=== PATIENT | male | born 1970 | race Caucasian/White ===

== ENCOUNTER 2020-11-19 21:53 | Observation (INO) | payer BC, SELFPAY ==
--- NOTE | ~2020-11-19 | XR_ITS ---
EXAMINATION: XR chest 2V 11/19/2020 22:48 INDICATION: Cough, nausea and headache PROCEDURE: 2 view chest COMPARISON: No prior studies for comparison. FINDINGS: The lungs are clear. The cardiomediastinal silhouette is within normal limits. There are no pleural effusions. There is no pneumothorax suspected. IMPRESSION: 1: NO ACUTE CARDIOPULMONARY DISEASE. Reviewed, dictated and finalized at location A. SEALING MACHINE OPERATOR
[2020-11-19 21:55] VITALS: BP 201/115; PULSE 92; RESP 17; O2SAT 98
--- NOTE | 2020-11-19 22:40 | ECG_ITS ---
Measurements Intervals [place] Rate: 87 P: 10 SD: 157 QRS: 16 QRSD: 87 T: -1 QT: 366 QTc: 442 Interpretive Statements SINUS RHYTHM BORDERLINE ST-T WAVE ABNORMALITY- INFERIOR LEADS BASELINE ARTIFACT- I, III, AVR, AVL, AVF BORDERLINE ECG Electronically Signed On 11-20-2020 7:13:31 BLUEPRINT CLERK by Everett Alvarenga D.O.
--- NOTE | 2020-11-19 22:42 | ED.CHESTPAIN ---
HPI - Chest Pain General Chief Complaint: Recheck/Abnormal Lab/Rx Stated Complaint: High BP, headache Time Seen by Provider: 11/19/20 22:07 Source: patient Mode of arrival: ambulatory Limitations: no limitations History of Present Illness HPI narrative: Patient is a 50-year-old male complaining of chest pain, midsternal, pressure, 6 out of 10, nonradiating accompanied by nausea and elevated blood pressure started today. Patient also noticed flushing of his face along with the elevated blood pressure. Patient denies any history of hypertension. Patient denies any shortness of breath, abdominal pain, vomiting, diaphoresis, fever or chills. Related Data Home Medications Medication Instructions Recorded Confirmed No Home Medications 11/19/20 11/19/20 Allergies Allergy/AdvReac Type Severity Reaction Status Date / Time No Known Allergies Allergy Verified 11/19/20 21:55 Review of Systems Review of Systems: All systems reviewed & are unremarkable except as noted in HPI and below Constitutional: Constitutional: Denies body ache(s), Denies chills, Denies excessive sweating, Denies fatigue, Denies fever(s), Denies headache(s), Denies lethargy, Denies malaise, Denies weakness and Denies weight loss Eyes: Eyes: Denies blurry vision, Denies change in vision and Denies loss of vision ENT: Denies dizziness, Denies ear discharge, Denies headache(s), Denies lip swelling, Denies epistaxis, Denies nasal congestion, Denies neck pain, Denies throat swelling and Denies tongue swelling Cardiovascular: Cardiovascular: Denies diaphoresis, Denies rapid heart rate, Denies edema, Denies irregular heart rhythm, Denies lightheadedness, Denies palpitations, Denies dyspnea and Denies dyspnea on exertion Respiratory: Respiratory: Denies chest congestion, Denies cough, Denies hemoptysis, Denies dyspnea and Denies dyspnea on exertion Gastrointestinal: Gastrointestinal: Denies abdominal pain, Denies melena, Denies hematochezia, Denies diarrhea, Denies nausea, Denies vomiting and Denies hematemesis Musculoskeletal: Musculoskeletal: Denies abnormal gait, Denies deformity, Denies joint swelling, Denies limited range of motion, Denies neck pain and Denies numbness Neurologic: Denies Abnormal speech present, Denies abnormal gait, Denies confusion, Denies dizziness, Denies headache(s), Denies focal weakness, Denies loss of vision, Denies numbness, Denies Other visual disturbances, Denies Sensory deficit (Neuro) and Denies weakness Psychiatric: Psychiatric: Denies confusion, Denies depression, Denies auditory hallucinations, Denies homicidal ideation and Denies suicidal ideation Endocrine: Endocrine: Denies cold intolerance, Denies excessive sweating, Denies fatigue, Denies heat intolerance and Denies palpitations Hematologic/Lymphatic: Hematologic/Lymphatic: Denies easy bleeding and Denies easy bruising Allergic/Immunologic: Allergic/Immunologic: Denies lip swelling, Denies throat swelling and Denies tongue swelling PMFSH Social History Social History Gender identity (if verbalized by the patient): Male Exam Const: General: cooperative, healthy appearing, comfortable, no acute distress, well developed, alert and awake; No confusion Orientation/consciousness: oriented to person, oriented to place, oriented to time, patient oriented x3 and No confusion Limitations: no limitations HENMT: Head: normal to inspection, normocephalic and atraumatic Ears: hearing grossly normal bilaterally, TM normal on the right and TM normal on the left General nose exam: Normal external nose present, Normal nares present and No nasal discharge present Face and sinus: normal facial exam Mouth: Yes Normal oral and palatal mucosa present, Yes lip normal, Yes tongue normal and Yes oropharynx normal Throat: posterior oropharynx normal, tonsils normal and uvula midline Eyes: General: appearance normal, both eyes and all relate
--- NOTE | 2020-11-19 22:44 | PC.NURSE ---
Pt. to XR
[2020-11-19 23:03] VITALS: BP 152/107; PULSE 87; RESP 22; O2SAT 96
[2020-11-19] MEDS: ASPIRIN 81 MG CHEWABLE TABLET 324 MG PO (23:04)
[2020-11-19] MEDS: NITROGLYCERIN SL 0.4 MG TABLET SUBLINGUAL (23:05)
--- NOTE | 2020-11-19 23:08 | PC.NURSE ---
2305 Pt. CP 4/10 Administered 1 Nitro SL 0.4 MG bp 152/107 2310 Pt. chest pain 2/10 BP 129/87 Administered 1 nitro SL 0.4 mg 2315 Pt. CP 0/10 BP 72/50
[2020-11-19] MEDS: SODIUM CHLORIDE 0.9% IV 1,000 ML 999 ML (23:17)
--- NOTE | 2020-11-19 23:19 | PC.NURSE ---
ERP notified of Pt. BP drop 1L NS administered IVP at 999ml/hr
[2020-11-19 23:28] LABS: Basophils Absolute Auto 0.1 K/mm3 (0.0-0.1); Basophils Percent Auto 0.5 % (0.2-1.2); Eosinophils Absolute Auto 0.2 K/mm3 (0-0.3); Eosinophils Percent Auto 1.3 % (0-4.4); Hematocrit 44.1 % (42.0-52.0); Immature Granulocyte Absolute 0.04 K/mm3 (0.00-0.031); Immature Granulocyte Percent A 0.3 % (0-0.5); Lymphocytes Absolute Auto 2.25 K/mm3 (0.9-3.2); Lymphocytes Percent Auto 18.7 % (18.3-44.2); Mean Corpuscular Hemoglobin 29.1 pg (26-34); Mean Corpuscular Volume 85.6 fl (80-100); Mean Platelet Volume 10.2 fl (7.4-10.4); Monocytes Absolute Auto 0.8 K/mm3 (0.1-0.6); Monocytes Percent Auto 6.9 % (2.6-8.5); Neutrophils Absolute Auto 8.7 K/mm3 (1.3-6.7); Neutrophils Percent Auto 72.3 % (45.5-73.1); Platelet Count Result 268 k/mm3 (150-375); Red Blood Count 5.15 M/mm3 (4.6-6.20); Red Cell Distribution Width 13.4 % (11.5-14.5); White Blood Count 12.1 K/mm3 (4.5-10.0)
[2020-11-19 23:35] LABS: Alanine Aminotransferase 51 U/L (4-50); Albumin Level 4.5 g/dL (3.5-5.1); Alkaline Phosphatase 45 U/L (38-126); Anion Gap 7 mmol/L (8-16); Aspartate Amino Transferase 50 U/L (17-59); Bilirubin,Total 0.5 mg/dL (0.2-1.3); Blood Urea Nitrogen 16 mg/dL (9-20); Calcium 9.3 mg/dL (8.4-10.2); Carbon Dioxide 26 mmol/L (22-30); Chloride 107 mmol/L (98-107); Estimated CRCL calculation 98 ml/min; Estimated Glomerular Filt Rate > 60; Glucose 107 mg/dL (75-110); Potassium 3.7 mmol/L (3.4-5.0); Sodium 140 mmol/L (137-145)
[2020-11-19 23:42] LABS: INR 0.9; Prothrombin Time 12.9 Seconds (11.1-14.7)
[2020-11-19 23:44] LABS: Partial Thromboplastin Time 28.7 SECONDS (22.3-36.8)
[2020-11-20] VITALS (30 sets, daily range): BP systolic 121–182; BP diastolic 78–116; PULSE 74–98; RESP 12–29; TEMP 36–36.4; O2SAT 95–100; BMI 33.7
--- NOTE | 2020-11-20 | EST_ITS ---
Patient Info Name: Red Sullivan Age: 50 years : 1970 Gender: Male Ht: 67 in Wt: 210 lbs BSA: 2.16 m2 Exam Date: 11/20/2020 1:27 PM Exam Location: [facility] Pul[facility] Patient Status: Inpatient Admit Date: 11/20/2020 Staff Ordering Physician: Trevor Torres MD Drug Regulatory Affairs Specialist: Vernell Hauser RDCS Attending Provider: Vivi Crocker DO Exercise Technologist: Vee Dumont RDCS Exercise Physician: Everett Alvarenga DO Exam Type: CA stress echo Study Info Indications R07.9 - Chest pain, unspecified Treadmill exercise stress echocardiogram is performed. Summary 1. 1. Negative Jair exercise stress test for ischemic ST changes by ECG criteria. 2. 2. Good functional capacity, achieving 12 METs of workload. 3. 3. Baseline hypertension with hypertensive response to exercise. 4. 4. Appropriate HR response to exercise. 5. 5. Appropriate HR recovery at 1 minute post exercise. 6. 6. Negative stress echocardiogram for ischemia by wall motion analysis. 7. 7. Patient informed of the above results. Stress Echo Findings Left Ventricle Appropriate increase in LV endocardial thickening with systole. Appropriate augmentation of contractility with systole. No wall motion abnormality. Left Ventricle Normal LV systolic function, no wall motion abnormality. Protocol: Jair Stress ECG Details Stage: REST Duration (min): 13 min : 31 sec Speed (mph): 0.0 Grade (%): 0 HR (bpm): 82 SBP (mmHg): 157 DBP (mmHg): 102 METS: --- Stage: REST Duration (min): 25 min : 23 sec Speed (mph): 0.0 Grade (%): 0 HR (bpm): 89 SBP (mmHg): 157 DBP (mmHg): 102 METS: --- Stage: STAGE 1 Duration (min): 1 min : 0 sec Speed (mph): 1.7 Grade (%): 10 HR (bpm): 111 SBP (mmHg): 157 DBP (mmHg): 102 METS: --- Stage: STAGE 1 Duration (min): 2 min : 0 sec Speed (mph): 1.7 Grade (%): 10 HR (bpm): 118 SBP (mmHg): 157 DBP (mmHg): 102 METS: --- Stage: STAGE 1 Duration (min): 3 min : 0 sec Speed (mph): 1.7 Grade (%): 10 HR (bpm): 119 SBP (mmHg): 170 DBP (mmHg): 100 METS: --- Stage: STAGE 2 Duration (min): 1 min : 0 sec Speed (mph): 2.5 Grade (%): 12 HR (bpm): 124 SBP (mmHg): 170 DBP (mmHg): 100 METS: --- Stage: STAGE 2 Duration (min): 2 min : 0 sec Speed (mph): 2.5 Grade (%): 12 HR (bpm): 131 SBP (mmHg): 181 DBP (mmHg): 101 METS: --- Stage: STAGE 2 Duration (min): 3 min : 0 sec Speed (mph): 2.5 Grade (%): 12 HR (bpm): 135 SBP (mmHg): 181 DBP (mmHg): 101 METS: --- Stage: STAGE 3 Duration (min): 1 min : 0 sec Speed (mph): 3.4 Grade (%): 14 HR (bpm): 144 SBP (mmHg): 196 DBP (mmHg): 106 METS: --- Stage: STAGE 3 Duration (min): 2 min : 0 sec Speed (mph): 3.4 Grade (%): 14 HR (bpm): 152 SBP (mmHg): 196 DBP (mmHg): 106 METS: --- Stage: STAGE 3 Duration (min): 3 min : 0 sec S
[2020-11-20 00:02] LABS: Troponin I < 0.012 ng/mL (0.000-0.034)
[2020-11-20] MEDS: diphenhydrAMINE HCl CAP 25 MG CAPSULE 50 MG PO (02:24)
[2020-11-20 02:53] LABS: Troponin I < 0.012 ng/mL (0.000-0.034)
--- NOTE | 2020-11-20 03:24 | ADMGEN ---
This patient, Red Sullivan, was admitted to IMU Room 232-01. Patient/family oriented to hospital policies and general routines including ID bracelet, bed and alarms, visiting hours, pain management, procedures, bathroom and other care routines, personal items, smoking policy, room service/diet, and visiting hours. Information on how to activate the Rapid Response Team has been discussed. Patient/Family are encouraged to report perceived risks to care and to ask questions if they do not understand what they are told or what they should do.
[2020-11-20 05:58] LABS: Troponin I < 0.012 ng/mL (0.000-0.034)
--- NOTE | 2020-11-20 10:53 | PM.IMHP ---
H&P: HPI History of Present Illness Date/Time: 11/20/20 10:53 Chief Complaint: Chest pain, elevated BP Narrative: Red Sullivan is a 50 year old male with Crohn's disease here for chest pain and elevated blood pressure. About 1 year ago patient noted some facial redness. This has been associated acne. He also has been having right periorbital headaches. He does provide history that he had a head injury but 25 years ago after a boxing bout and was hospitalized for a week at that time with a brain bleed. The headache and facial redness has increased over the past month. He does not drink alcohol, smoke tobacco or illicit drug use. Nothing seems to make the symptoms worse. He has been taking ?a lot of Tylenol recently. He states his 15-year-old daughter has moved in with a boyfriend and he is having a lot of stress due to this. He has been taking excessive amounts of [id number] sleep aids for his insomnia as well. Patient did have COVID 4 weeks ago but was tested negative for COVID about 10 days ago. Because of the facial redness, the patient had a friend check his blood pressure and it was 200/100. Short time later was 140/100. He had a headache at the time. He has been having some facial pressure when he bends over at work. He works as a mudder putting up drywall. No chest pain with work. His work environment is very [place]. Three nights ago, patient developed chest pain that he describes as ?tightness? and ?someone sitting on my chest?. This occurred in the overnight hours. He was up and down all night. He does not believe the chest pain ever resolved that night but resolved by the morning (lasting about 4-5 hrs). There is no nausea, vomiting, diaphoresis for shortness of breath. He rated the pain 6 to 7/10 at that time. Pain resolved by the morning and he was able to work that day without difficulty. Patient was noted to be flushed in the face yesterday afternoon. A friend insisted he come to the emergency room which he did so. He was short of breath walking into the facility here. He had some nausea and headache. No diaphoresis. He developed chest tightness a describes 4/10 but no radiation while here in the ED. He did have ?spots? in his vision but that has resolved. Blood pressure on presentation was 201/115. EKG showed borderline ST T wave changes in the inferior lead. Initial Troponin was negative. Labs [place] [id number]. Chest x-ray was clear. ALT elevated 51 but no risk factors for hepatitis C. He also states he was been tested for hepatitis C in the past that has been negative. He was treated with nitroglycerin and aspirin. Repeat blood pressure improved. Patient also received 3 doses of Benadryl as well. Patient was admitted for further care. No further chest pain since admission. Troponins were negative x3. Other pertinent information includes the fact the patient was seen 3 years ago for palpitations at [place] [facility]. He had chest pain at that time as well. He was discharged from [place] [facility] and had a follow-up outpatient treadmill stress test that was negative. He has blurry vision but thinks he has were glasses. No vision loss or diplopia. No odynophagia or dysphagia. No hearing loss or tinnitus. He has a chronic cough associated with acid reflux. No urinary symptoms. No diabetes or thyroid disease. He does have increased anxiety over the past year related to his daughter. No suicidal or homicidal ideation. No neurologic symptoms. He has gained about 40-50 lb with a past 3-4 years. He does have chronic diarrhea from his Crohn's but no melena or hematochezia. He has 2-3 bowel movements per day. He is not on any treatments for his Crohn's. He a was on prednisone in the past about 6-7 years ago. His last flare was 1-2 years ago. Review of Systems Review of Systems: All systems reviewed & are unremarkable except as noted in HPI and below PMFSH Past Medical Histor
[2020-11-20] MEDS: amLODIPine BESYLATE 5 MG TABLET PO (12:51)
[2020-11-20] MEDS: ACETAMINOPHEN 325 MG TABLET 650 MG PO ×2 (12:51→22:59)
[2020-11-20] MEDS: ASPIRIN 81 MG CHEWABLE TABLET PO (12:51)
[2020-11-20 13:25] LABS: Acetaminophen < 10 ug/mL (10-30)
[2020-11-20] MEDS: LORazepam (*CRX) 0.5 MG TABLET PO (18:20)
[2020-11-20] MEDS: lisinopriL 10 MG TABLET PO (18:20)
[2020-11-20] MEDS: MELATONIN 3 MG TABLET PO (23:00)
[2020-11-21] VITALS (8 sets, daily range): BP systolic 121–142; BP diastolic 61–88; PULSE 66–100; RESP 16–18; TEMP 36.1–36.5; O2SAT 95–98
[2020-11-21] MEDS: ACETAMINOPHEN 325 MG TABLET 650 MG PO ×2 (05:19→15:43)
[2020-11-21] MEDS: LORazepam (*CRX) 0.5 MG TABLET PO ×2 (05:19→15:43)
[2020-11-21 05:46] LABS: Basophils Percent Auto 0.4 % (0.2-1.2); Eosinophils Absolute Auto 0.3 K/mm3 (0-0.3); Eosinophils Percent Auto 3.5 % (0-4.4); Hemoglobin 14.5 g/dL (14.0-18.0); Immature Granulocyte Absolute 0.03 K/mm3 (0.00-0.031); Immature Granulocyte Percent A 0.3 % (0-0.5); Lymphocytes Absolute Auto 2.15 K/mm3 (0.9-3.2); Lymphocytes Percent Auto 24.1 % (18.3-44.2); Mean Corpuscular HGB Conc 33.7 g/dl (32-36); Mean Corpuscular Hemoglobin 28.5 pg (26-34); Mean Corpuscular Volume 84.5 fl (80-100); Mean Platelet Volume 10.3 fl (7.4-10.4); Monocytes Absolute Auto 0.7 K/mm3 (0.1-0.6); Monocytes Percent Auto 8.2 % (2.6-8.5); Neutrophils Absolute Auto 5.7 K/mm3 (1.3-6.7); Neutrophils Percent Auto 63.5 % (45.5-73.1); Platelet Count Result 257 k/mm3 (150-375); Red Blood Count 5.09 M/mm3 (4.6-6.20); Red Cell Distribution Width 13.4 % (11.5-14.5); White Blood Count 8.9 K/mm3 (4.5-10.0)
[2020-11-21 06:00] LABS: Alanine Aminotransferase 45 U/L (4-50); Albumin Level 3.9 g/dL (3.5-5.1); Alkaline Phosphatase 35 U/L (38-126); Anion Gap 7 mmol/L (8-16); Aspartate Amino Transferase 44 U/L (17-59); Bilirubin,Total 0.5 mg/dL (0.2-1.3); Blood Urea Nitrogen 17 mg/dL (9-20); Calcium 8.9 mg/dL (8.4-10.2); Carbon Dioxide 26 mmol/L (22-30); Chloride 107 mmol/L (98-107); Cholesterol 199 mg/dL (0-200); Estimated CRCL calculation 97 ml/min; Estimated Glomerular Filt Rate > 60; Glucose 112 mg/dL (75-110); HDL Direct 36 mg/dL; Potassium 3.9 mmol/L (3.4-5.0); Sodium 140 mmol/L (137-145); Triglycerides 313 mg/dL (<150)
[2020-11-21 06:11] LABS: LDL Cholesterol Direct 110 mg/dL
[2020-11-21] MEDS: ASPIRIN 81 MG CHEWABLE TABLET PO (08:58)
[2020-11-21] MEDS: amLODIPine BESYLATE 5 MG TABLET PO (08:58)
[2020-11-21] MEDS: lisinopriL 10 MG TABLET PO (09:36)
--- NOTE | 2020-11-21 15:02 | PM.DS ---
DS: Admitting Diagnosis Admitting Diagnosis Admitting Diagnosis: Chest pain DS: Discharge Diagnosis Discharge Diagnosis (1) Chest pain in adult: Code(s): R07.9 - Chest pain, unspecified Status: Acute Assessment and Plan: Patient with atypical chest pain that occurs at rest. Probably the chest pain is related to his paroxysmal hypertension. Troponins are negative x3. EKG showing only minor abnormalities. Chest x-ray is clear. He does have family history. Minimal other risk factors otherwise. We proceeded with a stress echo that was normal. Lipid panel showing TG 313, TC 199, LDL 110 and HDL 36. (2) Hypertensive urgency: Code(s): I16.0 - Hypertensive urgency Status: Acute Assessment and Plan: Patient with paroxysmal hypertension. He only received dose of sublingual nitroglycerin and blood pressure became well controlled. His elevated blood pressure may be related to his the [id number] medications he is taking. He has been educated about stopping all of these medications from now on. Continue to use melatonin for insomnia. Given his anxiety, headache, flushing and paroxysmal hypertension, I am concerned about pheochromocytoma. We did check urine and plasma metanephrines and catecholamines. TSH level normal. Blood pressure did become elevated again during hospital course and he was started on oral antihypertensive medications. Blood pressure has become better controlled. (3) Rosacea: Code(s): L71.9 - Rosacea, unspecified Status: Acute Assessment and Plan: Patient has been having facial flushing over the past year but worse over the past month. He does not drink alcohol. This could be related to rosacea and clinically that appears to be the case. This may be made worse by the intermittent and severe high blood pressure. We started metronidazole cream. (4) Crohn's disease: Code(s): K50.90 - Crohn's disease, unspecified, without complications Status: Acute Assessment and Plan: Patient has a history of Crohn's disease. Not currently on treatment. He has been having diarrhea but I believe carcinoid is a low likelihood to explain his flushing. Follow up for a GI evaluation as an outpatient. (5) Apnea: Code(s): R06.81 - Apnea, not elsewhere classified Status: Acute Assessment and Plan: Apnea link was abnormal with AHI of 41 and RI of 45. Test was performed on room air with duration of over 6-1/2 hours. Patient will need sleep study as an outpatient. DS: Summary Hospital Course Reason for hospitalization: 50yo male with Crohn's disease here for chest pain. Please see H&P for details. Hospital Course: Please see above for details of hospital course. Status at Discharge Cognitive/behavioral status at discharge: Stable for discharge Time Spent with Patient Time attestation: Total time spent providing and/or coordinating discharge services: 40 minutes Time spent: Greater than 30 minutes Specific discharge activities: Patient Education Exam Narrative: Exam Narrative: AF 97.0 142/82 91 16 98% ra Gen - NARD HEENT - mild facial erythema consistent with roscea, right TM was retracted but left clear. Chest - lungs are clear to auscultation bilaterally. No wheezes or crackles. CV - heart was regular rate and rhythm. S1-S2. Tele showing no significnat dyrhythmias Abd - soft. NT/ND, +BS Ext - no pedal edema. 2+ DP pulses bilaterally. Psych - normal mood and affect. Patient is pleasant and cooperative. Skin - warm and dry. DS: Data Data Completed and Pending Labs on day of discharge: Labs from last 24 hours 11/21/20 11/21/20 11/21/20 05:09 05:09 05:09 WBC 8.9 RBC 5.09 Hgb 14.5 Hct 43.0 MCV 84.5 MCH 28.5 MCHC 33.7 RDW 13.4 Plt Count 257 MPV 10.3 Immature Gran % (Auto) 0.3 Neut % (Auto) 63.5 Lymph % (Auto) 24.1 [place] % (Auto) 8.2 Eos % (Auto
[2020-11-21 15:21] LABS: Cortisol Random 3.24 ug/dL
[2020-11-24 14:01] LABS: Metanephrine, Free <25 pg/mL (<=57); Normetanephrine, Free 52 pg/mL (<=148); Total, Free (MN + NMN) 52 pg/mL (<=205)
[2020-11-26 18:55] LABS: Creatinine, Random Urine 131 mg/dL (20-320); Metanephrine, Total Urine 366 mcg/g cr (155-608); Metanephrine, Urine 50 mcg/g cr (33-192); Normetanephrine, Urine 316 mcg/g cr (85-514)
--- NOTE | 2020-12-03 09:23 | PC.NURSE ---
Cortisol, urine meta, plasma meta, normet and total free faxed to [facility].
== END 2020-11-21 16:22 | disposition home or self-care (01) ==
LOC: ANHED 11-20 00:57 → ANHIMU 11-20 12:52
PROVIDERS: Admitting Provider Internal Medicine; Emergency Provider Emergency Medicine; PCP Nurse Practitioner Adult Health; Visit Provider Internal Medicine
DX: R07.89 Other chest pain (principal); I16.0 Hypertensive urgency; K50.90 Crohn's disease, unspecified, without complications; L71.9 Rosacea, unspecified; R06.81 Apnea, not elsewhere classified
CPT/HCPCS: 36415; 71046; 80053; 80061; 80307; 82533; 82570; 83835; 84443; 84484; 85025; 85610; 85730; 93005; 93351; 94762; 96360; 99285; A9270; G0378; G0379; J7030

== ENCOUNTER 2025-05-12 14:32 | Emergency (ER) | payer SELFPAY ==
--- NOTE | ~2025-05-12 | CT_ITS ---
CLINICAL INDICATION: Right flank pain COMPARISON: None. TECHNIQUE: Multiple contiguous axial images of the abdomen and pelvis were performed without the admi nistration of intravenous contrast The dose-length product (DLP) was 428.11 mGy-cm. Automated exposure control and iterative reconstruction technique were employed. FINDINGS/OBSERVATIONS: Visualized lower thorax: Right basilar atelectasis. The remainder of the bilateral lung billings are clear. The heart is of normal size, without pericardial effusion. Small hiatal hernia is present. Liver: The liver demonstrates homogeneous attenuation and is not enlarged. Gallbladder and biliary system: The gallbladder is only minimally distended, and otherwise unremarkable. Pancreas: Limited evaluation of the pancreas secondary to the lack of intravenous contrast. Spleen: The spleen demonstrates homogeneous attenuation and is not enlarged. Kidneys: Right sided hydroureteronephrosis extending to the right ureterovesicular junction where a 4 mm calculus is identified. The left kidney is unremarkable. Adrenal glands: Unremarkable. Gastrointestinal tract: Colonic diverticulosis without surrounding inflammatory change. Mural thickening within the distal small bowel. Appendix: The air-filled appendix is of normal caliber (axial series, images 127 through 141). Vasculature: Unremarkable. Lymph nodes: Limited evaluation without intravenous contrast. Pelvic structures: The bladder is only minimally distended, and contains a stone at the ureterovesicular junction. The prostate gland is not enlarged. Body wall and musculoskeletal: Small fat-containing umbilical hernia. No significant degenerative disease within the lower thoracic or lumbosacral spine. IMPRESSION: Right-sided hydroureteronephrosis secondary to a 4 mm calculus within the right ureterovesicular junc tion Reviewed, dictated and finalized at location A. IMPRESSION: Right-sided hydroureteronephrosis secondary to a 4 mm calculus within the right ureterovesicular junction
--- OUTSIDE RECORDS SUMMARY | 2025-05-12 14:35 | XMS_ITS | Data Portability ---
Author Organization [facility] Address [address] [place] [address] Assessment Encounter Date Assessment Date Assessment LastModified by Organization Details LastModified Time 10/26/2023 10/26/2023 phq9 -- 9 - no SI [email or web address] Not available 10/26/2023 16:52:04 06/04/2024 06/04/2024 Pt is stable. He is on no medications. [email or web address] Not available 06/10/2024 10:38:18 10/03/2024 10/03/2024 BP is elevated because he had just drunk an energy drink. Not available 10/08/2024 07:25:02 Plan of Treatment Reminders Order Date Submit Date Provider Last Modified By Organization Details Last Modified Time Details Appointments None record ed. Lab PSA, total, serum or plasma 2023 024 [facility], [address] [facility], [facility], [place], [address], 4 06:18:56 HbA1c (hemog lobin A1c), blood 2023 024 [facility], [address] [facility], [address], [place], [address], 4 06:18:55 CMP, serum or plasma 2023 024 [facility], [address], [place], [address], 4 06:18:54 lipid panel, serum 2023 024 [facility], [address], [facility], [place], [address], 4 06:18:52 CMP, serum or plasma 2023 024 [email or web address] [facility], [address] [facility], [facility], [place], [address], 4 15:24:31 lipid panel, serum 2023 024 [email or web address] [facility], [address] [facility], [facility], [place], [address], 4 15:24:31 HbA1c (hemog lobin A1c), blood 2023 024 [email or web address] [facility], [address] [facility], [facility], [place], [address], 4 15:24:31 PSA, total, serum or plasma 2023 024 [facility], [address] [facility], [facility], [place], [address], 4 15:24:31 lipid panel, serum 2023 024 [facility], [address] [facility], [facility], [place], [address], 4 06:18:19 CMP, serum or plasma 2023 024 [facility], [address] [facility], [facility], [place], [address], 4 06:18:20 TSH, ultra- sensit hadley, serum 2023 024 [facility], [address] [facility], [facility], [place], [address], 4 09:17:42 HbA1c (hemog lobin A1c), blood 2023 024 [facility], [address] [facility], [address], [place], [address], 4 09:17:44 vitami n B12 + folate , serum or blood 2023 024 [facility], [address] [facility], [address], [place], [address], 4 09:17:43 iron + total iron-b inding capaci ty (TIBC) , serum 2023 024 [facility], [address] [facility], [address], [place], [address], 4 09:17:43 ferrit in, serum or plasma 2023 024 [facility], [address] [facility], [facility], [place], [address], 4 09:17:45 vitami n D, 25-hyd oralia, total, serum 2023 024 [facility], [address] [facility], [facility], [place], [address], 4 09:17:46 Hepati tis C IgG Ab, qual, serum 2023 024 [facility], [address] [facility], [facility], [place], [address], 4 09:17:41 HIV 1 + 2, meanin gful use set 2023 024 [facility], [address] [facility], [facility], [place], [address], 4 09:17:47 Referral neurol ogist referr al 2023 024 [email or web address] [facility], [address] [place] [address] [address], [place], [address], 4 11:33:55 gastro entero logist referr al 2023 024 thomas Ashton MD, [address] [facility] [address], [place], [address], 4 17:04:49 sleep medici ne referr al - previo usly on CPAP has not used in years - has been diagno sed in other state 2023 024 [place] Haley Rajput, [address] [facility], [address], [place], [address], 4 11:46:32 Procedures None record ed. Surgeries None record ed. Imaging None record ed. Medication Orders rosuva statin 10 mg tablet 2023 [facility][id number], [address], [place], [place], [id number], 4 16:40:14 triamc inolon e aceton herson 0.1 % topica l cream 2023 024 [facility] #[id number], [address] , [place], [place], [id number], 4 16:33:30 atorva statin 40 mg tablet 2023 024 [facility] #[id number], [address], [place], [place], [id number], 4 16:09:54 Patient TargetsNo targets recorded. Patient Instructions Encounter Date Encounter Id Patient Instructions Last Modified By Organization Details Last Modified Time 10/26/2023 [id number] A healthy lifestyle: care instructions [email or web address] Not available 10/26/2023 16:52:10 Attending Physician Attestation I personally saw and examined the patient with the resident. I have reviewed the documentation and agree with the history, physical findings, work-up, and medical decision making as recorded. Tegan Davidson MD [email or web address] Not available 10/26/2023 16:50:01 11/20/2023 [id number] A healthy lifestyle: care instructions [email or web address] Not available 11/20/2023 09:37:05 On the date of this encounter, I was immediately available to assist the resident/fellow in the care of the patient, and have reviewed and agree with the resident s findings and plan of care. ~MD West [email or web address] Not available 11/20/2023 09:42:24 01/03/2024 [id number] A healthy lifestyle: care instructions [email or web address] Not available 01/03/2024 10:55:25 I was present in the office and available during the visit. I discussed the patient s presentation, findings, assessment and plan with the resident during or immediately after the time of service. I agree with the resident s findings, assessment, and plan as documented in the note above. Molly Figueroa MD. [facility] [email or web address] Not available 01/03/2024 10:54:47 06/04/2024 [id number] When You Want to Lose Weight: Care Instructions Not available 06/04/2024 17:08:36 10/03/2024 [id number] crohn's disease: care instructions [email or web address] Not available 10/03/2024 16:35:01 drug allergy: ca re instructions [email or web address] Not available 10/03/2024 16:33:20 Reason for Referral Sleep Medicine Referral for Obstructive sleep apnea syndrome previously on CPAP has not used in years - has been diagnosed in other state Referring Physician: Cherry Valverde, Deep Submergence Vehicle Operator, Encounter Date: 10/26/2023 Motion Picture Photographer Referral for Screening for malignant neoplasm of colon Referring Physician: Cherry Valverde Deep Submergence Vehicle Operator, Encounter Date: 11/20/2023 Neurologist Referral for Fam jess history of dementia Referring Physician: Dennis Morris, Family Medicine, Encounter Date: 06/04/2024 Results Created Date Observation Date Name Description Value Unit Range Abnormal Flag Note LastModifiedBy Organization Detail LastModifiedTime 10/26/19 24 10/26/2023 LIPID PANEL cholesterol, total 229 mg/dL 100-19 9 above high normal Not Available [facility] [address] [place], [address], 10/27/2023 06:18:19 10/26/19 24 10/26/2023 LIPID PANEL triglyceride s 551 mg/dL 0-149 above high normal Not Available [facility] [address] [place] [address], [address], 10/27/2023 06:18:19 10/26/19 24 10/26/2023 LIPID PANEL HDL cholesterol 36 mg/dL 40-999 below low normal Not Available [facility] [address] [place], [address], 10/27/2023 06:18:19 10/26/19 24 10/26/2023 LIPID PANEL VLDL cholesterol ramiro 110 mg/dL 5-40 above high normal Not Available [facility] [address] [place] [address], [address], 10/27/2023 06:18:19 10/26/19 24 10/26/2023 LIPID PANEL LDL chol calc (nih) 164 mg/dL 0-99 above high normal Not Available [facility] [address] [place] [address], [address], 10/27/2023 06:18:19 10/26/19 24 10/26/2023 COMP. METAB OLIC PANEL (14) glucose 96 mg/dL 70-99 Not Available [facility] [address] [place], [address], 10/27/2023 06:18:20 10/26/19 24 10/26/2023 COMP. METAB OLIC PANEL (14) BUN 16 mg/dL 6-24 Not Available [facility] [address] [place] [address], [address], 10/27/2023 06:18:20 10/26/19 24 10/26/2023 COMP. METAB OLIC PANEL (14) creatinine 0.85 mg/dL 0.76-1 .27 Not Available [facility] [address] [place] [address], [address], 10/27/2023 06:18:20 10/26/19 24 10/26/2023 COMP. METAB OLIC PANEL (14) eGFR 105 >=60 Units for eGFR value s are mL/mi n/1.7 3 The eGFR Calcu latio n has not been valid ated for patie nts under the age of 18. If test resul ts are displ ayed for a patie nt under the age of 18, disre mary jane that value . Not Available [facility] [address] [place] [address], [address], 10/27/2023 06:18:20 10/26/19 24 10/26/2023 COMP. METAB OLIC PANEL (14) BUN/creatini ne ratio 19 9-20 Not Available [facility] [address] [place] [address], [address], 10/27/2023 06:18:20 10/26/19 24 10/26/2023 COMP. METAB OLIC PANEL (14) sodium 142 mmol/ L 134-14 4 Not Available [facility] [address] [place] [address], [address], 10/27/2023 06:18:20 10/26/19 24 10/26/2023 COMP. METAB OLIC PANEL (14) potassium 3.9 mmol/ L 3.5-5. 2 Not Available [facility] [address] [place] [address], [address], 10/27/2023 06:18:20 10/26/19 24 10/26/2023 COMP. METAB OLIC PANEL (14) chloride 105 mmol/ L 96-106 Not Available [facility] [address] [place] [address], [address], 10/27/2023 06:18:20 10/26/19 24 10/26/2023 COMP. METAB OLIC PANEL (14) carbon dioxide, total 22 mmol/ L 20-29 Not Available [facility] [address] [place], [address], 10/27/2023 06:18:20 10/26/19 24 10/26/2023 COMP. METAB OLIC PANEL (14) calcium 10.1 mg/dL 8.7-10 .2 Not Available [facility] [address] [place], [address], 10/27/2023 06:18:20 10/26/19 24 10/26/2023 COMP. METAB OLIC PANEL (14) protein, total 7.5 g/dL 6.0-8. 5 Not Available [facility] [address] [place], [address], 10/27/2023 06:18:20 10/26/19 24 10/26/2023 COMP. METAB OLIC PANEL (14) albumin 4.6 g/dL 3.8-4. 9 Not Available [facility] [address] [place], [address], 10/27/2023 06:18:20 10/26/19 24 10/26/2023 COMP. METAB OLIC PANEL (14) globulin, total 2.9 g/dL 1.5-4. 5 Not Available [facility] [address] [place], [address], 10/27/2023 06:18:20 10/26/19 24 10/26/2023 COMP. METAB OLIC PANEL (14) A/G ratio 1.6 1.2-2. 2 Not Available [facility] [address] [place], [address], 10/27/2023 06:18:20 10/26/19 24 10/26/2023 COMP. METAB OLIC PANEL (14) bilirubin, total 0.3 mg/dL 0.0-1. 2 Not Available [facility] [address] [place], [address], 10/27/2023 06:18:20 10/26/19 24 10/26/2023 COMP. METAB OLIC PANEL (14) alkaline phosphatase 39 IU/L 44-121 below low normal Not Available [facility] [address] [place] [address], [address], 10/27/2023 06:18:20 10/26/19 24 10/26/2023 COMP. METAB OLIC PANEL (14) AST (SGOT) 26 IU/L 0-40 Not Available [facility] [address] [place], [address], 10/27/2023 06:18:20 10/26/19 24 10/26/2023 COMP. METAB OLIC PANEL (14) ALT (SGPT) 34 IU/L 0-44 Not Available [facility] [address] [place] [address], [address], 10/27/2023 06:18:20 10/26/19 24 10/27/2023 HCV ANTIB SUKHDEV RFX TO QUANT PCR HCV Ab Non Reacti ve nonrea ctive Not Available [facility] ([facility]) [address] [place], [address], 10/27/2023 09:17:40 10/26/19 24 10/27/2023 TSH RFX ON ABNOR MAL TO FREE T4 TSH 1.840 uIU/m L 0.450- 4.500 Not Available [facility] ([facility]) [address] [facility], [place], [address], 10/27/2023 09:17:42 10/26/19 24 10/27/2023 VITAM IN B12 AND FOLAT E vitamin B12 318 pg/mL 232-12 45 Not Available [facility] ([facility]) [address] [facility], [place], [address], 10/27/2023 09:17:42 10/26/19 24 10/27/2023 VITAM IN B12 AND FOLAT E folate (folic acid), serum 7.3 NG/mL >3.0 A serum folat e vanessa ntrat ion of less than 3.1 ng/mL is consi dered to repre sent clini ramiro defic iency . Not Available [facility] ([facility]) [address] [facility], [place], [address], 10/27/2023 09:17:42 10/26/19 24 10/27/2023 IRON AND TIBC iron bind.cap.(TI BC) 282 ug/dL 250-45 0 Not Available [facility] ([facility]) [address] [facility], [place], [address], 10/27/2023 09:17:43 10/26/1910/27/2023 IRON AND TIBC UIBC 212 ug/dL 111-34 3 Not Available [facility] ([facility]) [address] [place], [address], 10/27/2023 09:17:43 10/26/19 24 10/27/2023 IRON AND TIBC iron 70 ug/dL 38-169 Not Available [facility] ([facility]) [address] [facility], [place], [address], 10/27/2023 09:17:43 10/26/1910/27/2023 IRON AND TIBC iron saturation 25 % 15-55 Not Available [facility] ([facility]) [address] [place], [address], 10/27/2023 09:17:43 10/26/1910/27/2023 HEMOG LOBIN A1C hemoglobin A1C 5.7 % 4.8-5. 6 above high normal Predi abete s: 5.7 - 6.4 Diabe jefry: >6.4 Glyce idalai contr ol for adult s with diabe jefry: <7.0 Not Available [facility] ([facility]) [address] [place], [address], 10/27/2023 09:17:44 10/26/1910/27/2023 CHEKO TIN ferritin 349 NG/mL 30-400 Not Available [facility] ([facility]) [address] [facility], [place], [address], 10/27/2023 09:17:45 10/26/19 24 10/27/2023 VITAM IN D, 25-HY DROXY vitamin D, 25-hydroxy 21.9 NG/mL 30.0-1 00.0 below low normal Vitam in D defic iency has been defin ed by the Insti tute of Medic ine and an Endoc rine Socie ty pract ice guide line as a level of serum 25-OH vitam in D less than 20 ng/mL (1,2) . The Endoc rine Socie ty went on to furth er defin e vitam in D insuf ficie ncy as a level betwe en 21 and 29 ng/mL (2). 1. IOM (Inst itute of Medic ine). 2009. Dietmariano ry refer ence intak es for calci um and D. Cristhian quick [place]: The [facility], [facility]–1983 [facility] Press . 2. Hattie plummer MF, [place], Yaneth off-F errar i HESS, et al. Evalu ation , treat ment, and preve ntion of vitam in D defic iency : an Endoc rine Socie ty clini ramiro pract ice guide line. JCEM. 2010; 96(7) :1911 -30. Not Available [facility] ([facility]) [address] [facility], [place], [address], 10/27/2023 09:17:46 10/26/19 24 10/27/2023 HIV AB/P2 4 AG WITH REFLE X HIV Ab/P24 Ag screen Non Reacti ve nonrea ctive HIV Negat hadley HIV-1 /HIV- 2 antib odies and HIV-1 p24 antig en were NOT detec christy. There is no labor atory evide nce of HIV infec tion. Not Available [facility] ([facility]) [address] [facility], [place], [address], 10/27/2023 09:17:47 10/26/19 24 10/27/2023 INTER PRETA TION: interpretati on: Commen t Not infec christy with HCV unles s early or acute infec tion is suspe cted (whic h may be delay ed in an immun ocomp romis ed indiv idual ), or other evide nce exist s to indic ate HCV infec tion. Not Available [facility] ([facility]) [address] [facility], [place], [address], 10/27/2023 09:17:40 10/03/20 24 10/05/2024 LIPID PANEL cholesterol, total 222 mg/dL 100-19 9 above high normal Not Available [facility] ([facility]) [address] [place], [address], 10/05/2024 06:18:52 10/03/20 24 10/05/2024 LIPID PANEL triglyceride s 311 mg/dL 0-149 above high normal Not Available [facility] ([facility]) [address] [place], [address], 10/05/2024 06:18:52 10/03/20 24 10/05/2024 LIPID PANEL HDL cholesterol 46 mg/dL >39 Not Available [facility]) [address] [place], [address], 10/05/2024 06:18:52 10/03/20 24 10/05/2024 LIPID PANEL VLDL cholesterol ramiro 55 mg/dL 5-40 above high normal Not Available [facility] ([facility]) [address] [facility], [place], [address], 10/05/2024 06:18:52 10/03/20 24 10/05/2024 LIPID PANEL LDL chol calc ([facility]) 121 mg/dL 0-99 above high normal Not Available [facility] ([facility]) [address] [place], [address], 10/05/2024 06:18:52 10/03/20 24 10/05/2024 COMP. METAB OLIC PANEL (14) glucose 96 mg/dL 70-99 Not Available [facility] ([facility]) [address] [place], [address], 10/05/2024 06:18:53 10/03/20 24 10/05/2024 COMP. METAB OLIC PANEL (14) BUN 17 mg/dL 6-24 Not Available [facility] ([facility]) [address] [place], [address], 10/05/2024 06:18:53 10/03/20 24 10/05/2024 COMP. METAB OLIC PANEL (14) creatinine 1.01 mg/dL 0.76-1 .27 Not Available [facility] ([facility]) [address] [place], [address], 10/05/2024 06:18:53 10/03/20 24 10/05/2024 COMP. METAB OLIC PANEL (14) eGFR 89 mL/mi n/1.7 3 >59 Not Available [facility] ([facility]) [address] [place], [address], 10/05/2024 06:18:53 10/03/20 24 10/05/2024 COMP. METAB OLIC PANEL (14) BUN/creatini ne ratio 17 9-20 Not Available [facility] ([facility]) [address] [place], [address], 10/05/2024 06:18:53 10/03/20 24 10/05/2024 COMP. METAB OLIC PANEL (14) sodium 143 mmol/ L 134-14 4 Not Available [facility] ([facility]) [address] [place], [address], 10/05/2024 06:18:53 10/03/20 24 10/05/2024 COMP. METAB OLIC PANEL (14) potassium 3.8 mmol/ L 3.5-5. 2 Not Available [facility] ([facility] [address] [place] [place], [address], 10/05/2024 06:18:53 10/03/20 24 10/05/2024 COMP. METAB OLIC PANEL (14) chloride 103 mmol/ L 96-106 Not Available [facility] ([facility] [address] [facility] [place], [address], 10/05/2024 06:18:53 10/03/20 24 10/05/2024 COMP. METAB OLIC PANEL (14) carbon dioxide, total 21 mmol/ L 20-29 Not Available [facility] ([facility]) [address] [facility] [place], [address], 10/05/2024 06:18:53 10/03/20 24 10/05/2024 COMP. METAB OLIC PANEL (14) calcium 9.9 mg/dL 8.7-10 .2 Not Available [facility] ([facility]) [address] [facility] [place], [address], 10/05/2024 06:18:53 10/03/20 24 10/05/2024 COMP. METAB OLIC PANEL (14) protein, total 6.9 g/dL 6.0-8. 5 Not Available [facility] ([facility]) [address] [facility] [place], [address], 10/05/2024 06:18:53 10/03/20 24 10/05/2024 COMP. METAB OLIC PANEL (14) albumin 4.3 g/dL 3.8-4. 9 Not Available [facility] ([facility]) [address] [facility] [place], [address], 10/05/2024 06:18:53 10/03/20 24 10/05/2024 COMP. METAB OLIC PANEL (14) globulin, total 2.6 g/dL 1.5-4. 5 Not Available [facility] ([facility]) [address] [place], [address], 10/05/2024 06:18:53 10/03/20 24 10/05/2024 COMP. METAB OLIC PANEL (14) bilirubin, total 0.3 mg/dL 0.0-1. 2 Not Available [facility] ([facility]) [address] [place], [address], 10/05/2024 06:18:53 10/03/20 24 10/05/2024 COMP. METAB OLIC PANEL (14) alkaline phosphatase 37 IU/L 44-121 below low normal Not Available [facility] ([facility]) [address] [place], [address], 10/05/2024 06:18:53 10/03/20 24 10/05/2024 COMP. METAB OLIC PANEL (14) AST (SGOT) 28 IU/L 0-40 Not Available [facility] ([facility]) [address] [place], [address], 10/05/2024 06:18:53 10/03/20 24 10/05/2024 COMP. METAB OLIC PANEL (14) ALT (SGPT) 34 IU/L 0-44 Not Available [facility] ([facility]) [address] [place], [address], 10/05/2024 06:18:53 10/03/20 24 10/04/2024 HEMOG LOBIN A1C hemoglobin A1C 5.4 % 4.8-5. 6 Predi abete s: 5.7 - 6.4 Diabe jefry: >6.4 Glyce idalia contr ol for adult s with diabe jefry: <7.0 Not Available [facility] ([facility]) [address] [place], [address], 10/05/2024 06:18:55 10/03/20 24 10/05/2024 PROST ATE-S PECIF IC AG prostate specific Ag 1.5 NG/mL 0.0-4. 0 Moraima ECLIA metho dolog y. Accor ding to the Ameri can Urolo gical Assoc iatio n, Serum PSA shoul d decre ase and remai n at undet ectab le level s after radic al prost atect estrella. The AUA defin es bioch emica l recur rence as an initi al PSA value 0.2 ng/mL or great er follo wed by a subse quent confi rmato ry PSA value 0.2 ng/mL or great er. Value s obtai luís with diffe rent assay metho ds or kits canno t be used inter sanchez eably . Resul ts canno t be inter prete d as absol cantwell evide nce of the prese nce or absen ce of [place]. Not Available [facility] ([facility]) [address] [facility], [place], [address], 10/05/2024 06:18:56 Result Notes None recorded. Problems Name Problem SNOMED Code Status Onset Date Resolution Date Notes Provider Name and Address Organization Details Recorded Time Knee pain Active Dorian Wilson null, [place] - [facility] 6 11:30:36 Liver function tests outside reference range 914686377 Active Flaca Harrsi [place] null, [place] [facility] 6 11:18:39 Eruption 047405336 Active Flaca Harris [place], [place] [facility] 6 11:18:39 Hand pain 59204384 Active Dorian Wilson [place], [place] [facility] 6 11:30:36 Genital warts 743956749 Active Brittany Pizano RN null, [place] [facility] 6 09:23:00 History of supraventr icular tachycardi a 6245493710428 4101 Active 2017 Brittany Pizano RN null, [place] [facility] 8 09:30:42 Crohn's disease 59509857 Active 2023 Cherry Valverde MD Attn: Accounting ,[address] [facility], [place], [address] , [place] - [facility] 4 16:32:22 Mixed anxiety and depressive disorder 003100258 Active 2023 Cherry Valverde MD Attn: Accounting ,[address] [place], [address] , [facility] 4 09:35:46 Prediabete s 254125677 Active 2023 Cherry Valverde MD Attn: Accounting ,[address] [place], [address] , [facility] 4 09:35:46 Mixed hyperlipid emia 181748424 Active 2023 Cherry Valverde MD Attn: Accounting ,[address] [place], [address] , [facility] 4 09:35:48 Obstructiv e sleep apnea syndrome 14228558 Active 2023 Cherry Valverde MD Attn: Accounting ,[address] [place], [address] , [facility] 4 09:35:49 Obesity 742265214 Active 2023 Cherry Valverde MD Attn: Accounting ,[address] [place], [address] , [facility] 4 09:36:33 Essential hypertensi on 79091758 Active 2023 Cherry Valverde MD Attn: Accounting ,[address] [place], [address] , [facility] 4 09:36:35 Screening for malignant neoplasm of colon Active 2023 Cherry Valverde MD Attn: Accounting ,[address] [place], [address] , [facility] 4 09:38:39 Problem Notes None recorded. Procedures Surgical History Date Name Laterality Status Provider Name and Address Organization Details Recorded Time Other completed Flaca Harris [place] - [facility] 11/19/2015 14:10:18 Knee Surgery completed Gia Munoz MA [place] - [facility] 06/10/2022 09:39:44 Imaging Results None recorded. Procedure Notes None recorded. Medical Equipment None Reported. Allergies No known drug allergies Medications Name Sig Start Date Stop Date Status Note LastModified by Organization Details LastModified Time atorvastati n 40 mg tablet TAKE 1 TABLET BY MOUTH EVERY DAY 06/04 completed Not Available Not Available Not Available ibuprofen 800 mg tablet TAKE 1 TABLET BY MOUTH EVERY 8 HOURS NEEDED 05/03 completed Not Available Not Available Not Available lisinopril 20 mg tablet TAKE 1 TABLET BY MOUTH EVERY DAY 10/26 completed Not Available Not Available Not Available prednisone 20 mg tablet TAKE 2 TABLETS BY MOUTH EVERY DAY FOR 3 DAYS 10/26 completed Not Available Not Available Not Available clindamycin HCl 150 mg capsule TAKE ONE CAPSULE BY MOUTH EVERY 6 HOURS FOR SEVEN DAYS 05/03 completed Not Available Not Available Not Available amlodipine 5 mg tablet TAKE 1 TABLET BY MOUTH EVERY DAY 10/26 completed Not Available Not Available Not Available hydrocodone 10 mg-acetamin ophen 325 mg tablet TAKE 1 TABLET BY MOUTH EVERY 6 HOURS NEEDED FOR PAIN 05/03 completed Not Available Not Available Not Available triamcinolo ne acetonide 0.1 % topical cream APPLY A THIN LAYER TO THE AFFECTED AREA(S) BY TOPICAL ROUTE 2 TIMES PER DAY PRN 2023 active Not Available Not Available Not Avai lable meloxicam 7.5 mg tablet Take 1 tablet twice a day by oral route. 11/20 completed Not Available Not Available Not Available Tessalon Perles 100 mg capsule Take 1 capsule 3 times a day by oral route. 06/03 completed Not Available Not Available Not Available amoxicillin 875 mg tablet TAKE 1 TABLET BY MOUTH EVERY 12 HOURS FOR 5 DAYS 05/03 completed Not Available Not Available Not Available diltiazem ER 120 mg capsule,24 hr,extended release take one capsule by mouth daily 12/03 completed Not Available Not Available Not Available erythromyci n 5 mg/gram (0.5 %) eye ointment INSTILL THIN STRIP INTO BOTH LOWER CONJUNCTI VA EVERY 3 TO 4 HOURS FOR 7 DAYS 10/26 completed Not Available Not Available Not Available lisinopril 10 mg tablet TAKE 1 TABLET BY MOUTH DAILY 04/16 completed Not Available Not Available Not Available Aldara 5 % topical cream packet APPLY TO THE AFFECTED AREA(S) BY TOPICAL ROUTE 5 TIMES PER WEEK 11/20 completed Not Available Not Available Not Available polymyxin B sulfate 10,000 unit-trimet hoprim 1 mg/mL eye drops INSTILL 1 DROP IN EACH EYE 3 TO 4 TIMES DAILY FOR 7 DAYS 10/26 completed Not Available Not Available Not Available metronidazo le 0.75 % topical cream APPLY EXTERNALL Y TO THE AFFECTED AREA EVERY 12 HOURS 04/16 completed Not Available Not Available Not Available lisinopril 30 mg tablet Take 1 tablet every day by oral route. 10/26 completed Not Available Not Available Not Available methylpredn isolone 4 mg tablets in a dose pack FOLLOW PACKAGE DIRECTION S 06/04 completed Not Available Not Available Not Available ondansetron 4 mg disintegrat ing tablet DISSOLVE 1 TABLET UNDER THE TONGUE EVERY 8 HOURS NEEDED FORNAUSEA AND VOMITING 10/26 completed Not Available Not Available Not Available amoxicillin 875 mg-potassiu m clavulanate 125 mg tablet TAKE 1 TABLET BY MOUTH TWICE DAILY 06/04 completed Not Available Not Available Not Available azithromyci n 500 mg tablet TAKE 1 TABLET BY MOUTH EVERY DAY FOR 3 DAYS active Not Available Not Available No t Available rosuvastati n 10 mg tablet Take 1 tablet every day by oral route for 90 days. 2023 active Not Available Not Available Not Avai lable emtricitabi ne 200 mg-tenofovi r disoproxil fumarate 300 mg tablet TAKE 1 TABLET BY MOUTH EVERY DAY 10/26 completed Not Available Not Available Not Available Isentress 400 mg tablet TAKE 1 TABLET BY MOUTH TWICE DAILY 10/26 completed Not Available Not Available Not Available Flonase Allergy Relief 50 mcg/actuati on nasal spray,suspe nsion [place] 1 spray every day by intranasa l route. 06/03 completed Not Available Not Available Not Available Vitals Date Recorded Body height Body mass index (BMI) Body weight Respiratory rate Body temperature Oxygen saturation Oxygen saturation in Arterial blood by Pulse oximetry Heart rate Systolic And Diastolic Provider Name and Address Organization Details Last Updated DateTime 4 170.18 cm 33.3 kg/m2 77004.7 3 g 16 /min 98.7 [degF] 95 % 95 % 83 /min 144/100 mm[Hg] Courtney Salmon MA [facility] 4 16:02:50 Date Recorded Body height Body mass index (BMI) Body weight Body temperature Respiratory rate Oxygen saturation Oxygen saturation in Arterial blood by Pulse oximetry Heart rate Systolic And Diastolic Provider Name and Address Organization Details Last Updated DateTime 4 170.18 cm 32.2 kg/m2 36437.1 9 g 96.8 [degF] 16 /min 95 % 95 % 75 /min 130/85 mm[Hg] Jessi Whitfield MA [facility] 4 09:03:49 Date Recorded Body height Body mass index (BMI) Body weight Body temperature Heart rate Respiratory rate Systolic And Diastolic Provider Name and Address Organization Details Last Updated DateTime 4 170.18 cm 31.1 kg/m2 90432.0 4 g 98.3 [degF] 70 /min 18 /min 132/82 mm[Hg] Barbie Roy MA [facility] 4 10:03:30 Date Recorded Body height Body mass index (BMI) Body weight Oxygen saturation Oxygen saturation in Arterial blood by Pulse oximetry Heart rate Respiratory rate Body temperature Systolic And Diastolic Provider Name and Address Organization Details Last Updated DateTime 4 170.18 cm 31.4 kg/m2 78571.2 2 g 96 % 96 % 95 /min 16 /min 97.1 [degF] 134/80 mm[Hg] Gia Munoz MA [facility] 4 16:11:17 Date Recorded Body height Body mass index (BMI) Body weight Oxygen saturation Oxygen saturation in Arterial blood by Pulse oximetry Heart rate Respiratory rate Body temperature Systolic And Diastolic Provider Name and Address Organization Details Last Updated DateTime 4 170.18 cm 31 kg/m2 34716.2 9 g 96 % 96 % 86 /min 16 /min 96.8 [degF] 140/100 mm[Hg] Gia Munoz MA [facility] 4 16:06:08 Social History Question Answer Notes LastModified by Organizat ion Details LastModified Time Tobacco Smoking Status Never Smoker Flacajustine Harris MA [facility], [place] - [place] 11/19/2015 14:10:18 Do You Have An Advance Directive? No Information not available 11/27/2020 Are You Blind Or Do You Have Difficulty Seeing? No Information not available 11/27/2020 What Is Your Level Of Caffeine Consumption? Moderate 2 To 3 Energy Drinks A Week., No Soda 06/04/24 Information not available 06/04/2024 In The 14 Days Before Symptom Onset, Have You Had Close Contact With A Laboratory-confi rmed COVID-19 While That Case Was Ill? No Information not available 11/27/2020 In The 14 Days Before Symptom Onset, Have You Had Close Contact With A Person Who Is Under Investigation For COVID-19 While That Person Was Ill? No Daughter/pt Had In Oct 2020 Information not available 11/27/2020 Have You Been To An Area Known To Be High Risk For COVID-19? No Information not available 11/27/2020 Are You Deaf Or Do You Have Serious Difficulty Hearing? No Information not available 11/27/2020 What Type Of Diet Are You Following? REGULAR Information not available 11/27/2020 Are There Any Guns Present In Your Home? No Information not available 11/27/2020 Marital Status Single [email or web address] Informatio n not available 11/19/2015 What Was The Date Of Your Most Recent Tobacco Screening? 01/03/2024 Information not available 01/03/2024 What Is Your Relationship Status? Single Information not available 11/27/2020 Do You Use Your Seat Belt Or Car Seat Routinely? Yes Information not available 11/27/2020 Are You Sexually Active? Yes Pt. Uses Protection Information not available 06/10/2022 Do You Have Smoke And Carbon Monoxide Detectors In Your Home? Yes Information not available 11/27/2020 Are You Passively Exposed To Smoke? No Information not available 11/27/2020 Do You Use Sunscreen Routinely? No Information not available 11/27/2020 Has Tobacco Cessation Counseling Been Provided? No Information not available 06/10/2022 On What Date Was Tobacco Cessation Counseling Provided? 01/03/2024 Information not available 01/03/2024 Sex: Male Functional Status Question Answer Note LastModified by Organizat ion Details LastModified Time Do you use any illicit or recreational drugs? No Information not available 06/10/2022 Do you or have you ever used any other forms of tobacco or nicotine? No Information not available 06/10/2022 What is your level of alcohol consumption? None alot of energy drinks Information not available 10/26/2023 Are you currently employed? Yes Information not available 10/26/2023 Are you able to care for yourself independently? 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 Occasional Information not available 11/27/2020 Mental Status Question Answer Note LastModified by Organization D etails LastModified Time Do you feel stressed (tense, restless, nervous, or anxious, or unable to sleep at night)? [id number] Information not available 11/27/2020 Family History Relationship Description Onset Age of this Age Resolved Age Notes LastModified by Organization Details LastModified Time Father Heart disease [email or web address] Not available 2015 11:18:39 Father Hypertensive disorder [email or web address] Not available 2015 11:18:39 Mother Dementia [email or web address] Not availab le 06/04/2024 16:08:45 Notes:Updated 06/04/24, 10/03 Medical History Condition Response Coronary Artery Disease N Gout N Other N Thyroid Disease N Atrial Fibrillation N High Blood Pressure N Emphysema N Depression N Congenital Heart Disease N COPD N Blood Clots N Pneumonia N Lung Mass N Sinusitis N Anxiety Disorder N Cystic Fibrosis N Muscle, Joint, or Bone Problems N Obesity N Arthritis N Blood Clot N Acid Reflux (GERD) N Cancer N Stroke N High Cholesterol N Liver Disease N Headaches N Kidney Disease N Allergies/Hayfever Y Thyroid Problems N Kidney or Bladder Problems N NSAID Use N GI Problems N Skin Problems N Anemia N Multiple Sclerosis N Heart Attack (ID) N Mental Illness N Diabetes N Seizures/Epilepsy N Tuberculosis N Diverticulitis N Allergies N Asthma N Hepatitis N Heart Disease N Bronchitis Y Pulmonary Embolism N Hypertension Y Osteoporosis N Heart Failure N Past Encounters Encounter ID Performer Location Encounter Start Date Encounter Closed Date Diagnosis/Indication Diagnosis SNOMED-CT Code Diagnosis ICD10 Code Diagnosis Note [id number] [place] [address] [place] [address] 1 11/19/2015 13:45:31 11/19/2015 15:08:35 Knee pain 70020287 M25.562 Adult heal th examination 314638518 Z00.00 Screening for malignant neoplasm of prostate 172730364 Z12.5 [id number] [place] [address] [place] [address] 1 12/07/2015 11:25:13 12/07/2015 15:38:55 Knee pain 74710263 M25.562 Eruption 112447253 R21 [id number] [place] [address] [place] [address] 1 01/04/2016 10:46:28 01/04/2016 13:36:34 Knee pain 57312440 M25.562 Hand pain 51294153 M79.6 42 [id number] Dorian [place] [address] [place] [address] 1 03/17/2016 11:04:25 03/17/2016 17:00:19 Hand pain 39128935 M79.642 Knee pain 47254807 M25.5 62 Genital warts 375152884 A63.0 [id number] [place] [address] [place] [address] 1 11/20/2017 15:42:03 11/20/2017 17:48:51 Palpitations 35835648 R00.2 Genital warts 802123726 A63.0 Adult heal th examination 894310175 Z00.00 [id number] MD Cornelia Vigil 14 [address] [facility] [place] [address] 12/03/2018 10:59:18 12/04/2018 09:52:27 Upper respiratory infection 88341243 J06.9 Adult heal th examination 217033148 Z00.00 Pain in right knee 51671 14456 59024 M25.561 Pain in left knee 446134 4628 22711 M25.678 [id number] MD Cornelia Vigil 14 IM 4 [facility] [address] [place] [address] 06/03/2019 14:35:44 06/04/2019 10:51:08 Knee pain 75364985 M25.562 left knee Diarrhea 45089936 R19.7 [id number] Dorian Wilson, [facility]- Cornelia 14 IM 4 [facility] [address] Wilson [address] [place], [place] [address], [place] [address] 06/01/2020 08:30:28 06/02/2020 10:04:10 Adult health examination 534563312 Z00.00 [id number] MD Cornelia Vigil 14 IM 4 [facility] [address] Wilson [address] [place], [place] [address], [place] [address] 11/27/2020 13:56:21 11/30/2020 08:58:30 Essential hypertension 41089294 I10 Obesity 307478592 E66.9 Pt is motivated to improve diet and to lose wt.He states that he has gained some 30 pounds over the last several years. Sleep disorder 69509593 G47.9 Raised shantanu orrheic keratosis 1184779214 07450 L82.1 [place] 556826998 R23.2 we will continue to monitor this after he has lost wt and sleep disorder issues have been addressed [id number] Arsalan Benitez MD [facility] (Adult Med) [address] [place] [address] 01/04/2021 15:33:07 01/07/2021 12:15:32 Obstructive sleep apnea syndrome 73153112 G47.33 Will order home sleep study, sleep hygiene discussed Essential hypertension 62584227 I10 Estate Attorney in primary care. Continue to monitor blood pressure. Encourage low salt diet and exercise. Body mass index 30+ - obesity 908159430 Z68.33 [id number] Arsalan Benitez MD [facility] [address] [place] [address] 02/12/2021 10:30:07 02/15/2021 14:40:56 Obstructive sleep apnea syndrome 38151025 G47.33 HSAT 01/26/21: AHi 21.7/hr, lowest 82%. Ordering Apap through [facility]. Encouraged to use cpap every night. Instructed pt to contact DME for any issues with mask fit, comfort, or machine related issue. F/U in 9 weeks to assess compliance and efficacy. sleep hygiene discussed Essential hypertension 06682102 I10 Estate Attorney in primary care. Continue to monitor blood pressure. Encourage low salt diet and exercise. Body mass index 30+ - obesity 555869647 Z68.33 [id number] Arsalan Benitez MD [facility] [address] [place] [address] 04/16/2021 12:14:35 04/27/2021 15:48:41 Obstructive sleep apnea syndrome 18826048 G47.33 HSAT 01/26/21: AHi 21.7/hr, lowest 82%.Cpap compliancy report - days worn/30 days greater than 4 hours, 27%Set pressure of 4-20 cm H2OAHI: 1.0Leak- 95th percentile : 22.5 , Max: 36.7He is benefiting from use, not compliant due to leaving at home when traveling out of town for work. He is motivated to use. Report increased pressure, will adjust and f/u in 1 month. Encouraged to contact office sooner than 1 month if no improvemen t in pressure/s leep after adjustment . Essential hypertension 14628694 I10 Estate Attorney in primary care. Continue to monitor blood pressure. Encourage low salt diet and exercise. Body mass index 30+ - obesity 929251645 Z68.33 [id number] Arsalan Benitez MD [facility] [address] [place] [address] 05/24/2021 11:44:03 05/24/2021 14:05:43 Obstructive sleep apnea syndrome 08135444 G47.33 Cpap compliance report - 11/30 days worn 1/30 days greater than 4 hours, 3% Set pressure of 4-15 cm H2O AHI: 1.1 Leak- 95th percentile : 10.9 , Max: 18.2 Reports issues with wearing due to nasal congestion with increased facial pain and headache He is motivated to use. Will order Sinus ct w/o contrast Essential hypertension 34966452 I10 Estate Attorney in primary care. Continue to monitor blood pressure. Encourage low salt diet and exercise. Body mass index 30+ - obesity 087889233 Z68.33 Sinusitis 22596823 J32.9 Increased issues with sinuses over 6 months. headache, nasal congestion , tenderness /pressure to maxillary and front sinuses.He is working out of town, will contact with nearest pharmacy. Will order nasal spray and antibiotic s with Sinus CT w/o contrast [id number] Ashley Figueroa MD [place] 14 IM 4 [facility] [address] [place] [address] 05/03/2022 09:23:58 05/04/2022 13:02:29 Essential hypertension 95244645 I10 hx of multiple hospitaliz ations for HTN urgencyBP 160/100Feb 2020 - but amlodipine 5 mg, diltiazem er 120 mg, lisinopril 10 mg x 1 mo duration with improvemen t of symptomsch hussein BP at home with cuff - currently taking no medication for HTN start...- lisinopril 20 mg po qd- amlodipine 5 mg po qdclose follow up with home BP readings, call with report in 2 weeks. Follow up within 4-6 weeks. Obstructiv e sleep apnea syndrome 57219531 G47.33 difficulty using CPAP - previously used entire mask to cover face with low compliance possible option to change to nasal CPAP - will assess s/p updated sleep studyhome sleep study revealed JOSE MANUEL with no follow up 2020 - sleep medicine referral Crohn's disease 59775480 K50.90 had gastroente rologist however not in staterefer for colonoscop yFHx significan t Crohn'sfla re ups often, last flare up 2 weeks MARKETING ANALYTICS SPECIALIST SARS-CoV-2 mRNA vaccine declined 7612249801 Z28.21 Patient counselled regarding the risks of COVID19, including blood clots and organ damage - as well as the benefits of vaccinatio n including reduction of the severity of symptoms, reduced hospital admission rates, and reduced risk of COVID sequela. Pt demonstrat es a clear understand ing without further questions or concerns at this time.State s had COVID twice, lost taste and smell - pt stated is not against it however, Right now I believe I am healthy enough that my body will fight it Obesity 286894236 E66.9 Discussed diet at length including healthier food options, increase vegetable and fiber intake, reduce salt intake, incorporat e yoga/stret agustin practices and exercise 30 min 5 x per week to improve cardiovasc ular health.BMI > 30Goal is 190 lbs to get to BMI 29.8 from 33.4 Mixed hyperlipidemia 267 395908 E78.2 pt has never taken a statinDisc ussed trying vegan meat options - impossible burgers - to try to reduce meat intake - pt agreeable to making changes.Di scussed cholestero l diet - reduced meat intake, reduced butter, increased fiber, olive oil. ASCVD risk score 9.7% Intermedia teCurrent 10-Year ASCVD RiskLife time ASCVD Risk: 69%Optimal ASCVD Risk: 2.1% - assess ASCVD risk score s/p lipid results- consider statin Body mass index 30+ - obesity 406803998 Z68.33 Discussed diet at length including healthier food options, increase vegetable and fiber intake, reduce salt intake, incorporat e yoga/stret agustin practices and exercise 30 min 5 x per week to improve cardiovasc ular health.BMI > 30 - discussed associated risks for adverse events with BMIGoal is 190 lbs to get to BMI 29.8 from 33.4 - a1c Tetanus va ccination declined by patient 417079302 Z28.21 pt declined Tdap HIV screening 119271251 Z11.4 Agreeable to screening for HIV + Hep CQM and recommende d guideline Hepatitis C screening 41 6338694 Z11.59 Agreeable to screening for HIV + Hep CQM and recommende d guideline [id number] MD Cornelia Tanner 14 IM 4 [facility] [address] [place] [address] 06/10/2022 09:29:11 06/13/2022 08:59:43 Obesity 486355020 E66.9 BMI 33.8Goal made last time was 190 lbs to get to BMI 29.8 from 33.4Pt gained 3 lbs since last appt. Will try again to make healthy changes and add personal counselor.Di scussed diet at length including healthier food options, increase vegetable and fiber intake, reduce salt intake, incorporat e yoga/stret agustin practices and exercise 30 min 5 x per week to improve cardiovasc ular health. Essential hypertension 60266853 I10 hx of multiple hospitaliz ations for HTN urgencyBP 152/88Feb 2020 - but amlodipine 5 mg, diltiazem er 120 mg, lisinopril 10 mg x 1 mo duration with improvemen t of symptomsch hussein BP at home with cuff started last appt lisinopril 20 mg po qd---- WILL INCREASE TO 30 MG PO QD FOR BETTER CONTROLCON TINUE - amlodipine 5 mg po qdclose follow up with home BP readings.F ollow up within 6 weeks. Body mass index 30+ - obesity 054430499 Z68.33 Discussed diet at length including healthier food options, increase vegetable and fiber intake, reduce salt intake, incorporat e yoga/stret agustin practices and exercise 30 min 5 x per week to improve cardiovasc ular health.BMI > 30 - discussed associated risks for adverse events with BMI - crohn's DZ makes it harder for pt to make healthy food choices- a1c 5.8 preDM Mixed hyperlipidemia 267 297421 E78.2 pt has never taken a statinDisc ussed trying vegan meat options - impossible burgers - to try to reduce meat intake - pt agreeable to making changes.Di scussed cholestero l diet - reduced meat intake, reduced butter, increased fiber, olive oil. ASCVD risk score 9.7% Intermedia teCurrent 10-Year ASCVD RiskLife time ASCVD Risk: 69%Optimal ASCVD Risk: 2.1% - assess ASCVD risk score s/p lipid results- consider statin- total chol 271, LDL 140, TG 450+ SARS-CoV-2 mRNA vaccine declined 9473616749 Z28.21 Patient counselled regarding the risks of COVID19, including blood clots and organ damage - as well as the benefits of vaccinatio n including reduction of the severity of symptoms, reduced hospital admission rates, and reduced risk of COVID sequela. Pt demonstrat es a clear understand ing without further questions or concerns at this time.State s had COVID twice, lost taste and smell - pt stated is not against it however, Right now I believe I am healthy enough that my body will fight it Tetanus va ccination declined by patient 692983553 Z28.21 pt declined Tdapdiscus sed risks associated Crohn's disease 40143659 K50.90 refer for colonoscop yFHx significan t Crohn'sfla re ups often, last flare up 2 in the last month lasting 2 days in duration - REFER AGAIN FOR GI TO DO COLONOSCOP Y TO ASSESS CROHN'S PROGRESSIO N AND PT IS DUE FOR SCREEN Discussed FODMAP food in meantime [id number] MD Cornelia BELTRAN 14 IM 4 [facility] [address] [place] [address] 10/26/2023 15:46:51 10/31/2023 14:33:45 Obstructive sleep apnea syndrome 70003839 G47.33 difficulty using CPAP - previously used entire mask to cover face with low compliance possible option to change to nasal CPAP - will assess s/p updated sleep studyhome sleep study revealed JOSE MANUEL with no follow up 2020 nor follow up in atien t sleeps during daytime, snores loudly at night, has witnessed periods of apnea, has HTN and is obese. ASCVD risk score 9.7% Intermedia teCurrent 10-Year ASCVD Risk Lifetime ASCVD Risk: 69% Optimal ASCVD Risk: 2.1%- assess new ASCVD risk score s/p lipid results - total chol 271, LDL 140, TG 450+- 7 points STOP-BANG High - Risk for moderate to severe JOSE MANUEL - sleep medicine referral done at previous visit patient did not follow up - difficult to set up sleep study without more guidance- refer to sleep medicine for split night study Essential hypertension 76093382 I10 hx of multiple hospitaliz ations for HTN urgencyBP 144/100Feb 2020 - amlodipine 5 mg, diltiazem er 120 mg, lisinopril 30 mg x 1 mo duration with improvemen t of symptomsch hussein BP at home with cuffstarte d last appt lisinopril 20 mg po qd and amlodipine 5 mg po qd patient DECLINED medication prefers lifestyle modificati onswill follow up in 4 weeks Obesity 558718013 E66.9 BMI 33.8Goal made last time was 190 lbs to get to BMI 29.8 from 33.4Pt gained 3 lbs since last appt. Will try again to make healthy changes and add personal counselor.Di scussed diet at length including healthier food options, increase vegetable and fiber intake, reduce salt intake, incorporat e yoga/stret agustin practices and exercise 30 min 5 x per week to improve cardiovasc ular health. Mixed hyperlipidemia 267 368852 E78.2 pt has never taken a statinDisc ussed trying vegan meat options - impossible burgers - to try to reduce meat intake - pt agreeable to making changes.Di scussed cholestero l diet - reduced meat intake, reduced butter, increased fiber, olive oil.ASCVD risk score 9.7% Intermedia teCurrent 10-Year ASCVD Risk Lifetime ASCVD Risk: 69% Optimal ASCVD Risk: 2.1%- assess new ASCVD risk score s/p lipid results- total chol 271, LDL 140, TG 450+- atorvastat in 40 mg po qd Body mass index 30+ - obesity 389865107 Z68.33 Discussed diet at length including healthier food options, increase vegetable and fiber intake, reduce salt intake, incorporat e yoga/stret agustin practices and exercise 30 min 5 x per week to improve cardiovasc ular health.BMI > 30 - discussed associated risks for adverse events with BMI - crohn's DZ makes it harder for pt to make healthy food choices- a1c 5.8 preDM (05/03/22) Crohn's disease 99859550 K50.90 refer for colonoscop yFHx significan t Crohn's - flare ups often, flare ups are profound diarrhea - nonbloody- last colonoscop y 3 years MARKETING ANALYTICS SPECIALIST will get recordsDis cussed FODMAP food in meantime HIV screening 154497601 Z11.4 Agreeable to screening for HIV + Hep CQM and recommende d guideline Hepatitis C screening 41 2944222 Z11.59 Agreeable to screening for HIV + Hep CQM and recommende d guideline [id number] MD Cornelia Tanner 14 [address] [facility] [address] [place] [address] 11/20/2023 08:55:33 11/22/2023 11:55:09 Obstructive sleep apnea syndrome 03360302 G47.33 difficulty using CPAP - previously used entire mask to cover face with low compliance possible option to change to nasal CPAP - will assess s/p updated sleep studyhome sleep study revealed JOSE MANUEL with no follow up 2020 nor follow up in atien t sleeps during daytime, snores loudly at night, has witnessed periods of apnea, has HTN and is obese. - 7 points STOP-BANG High - Risk for moderate to severe JOSE MANUEL - JANUARY 04 2024 appt for sleep medicine for split night study Essential hypertension [id number] I10 -- hx of multiple hospitaliz ations for HTN urgency-- nov 2020 - amlodipine 5 mg, diltiazem er 120 mg, lisinopril 30 mg x 1 mo duration with improvemen t of symptoms-- was started last appt lisinopril 20 mg po qd and amlodipine 5 mg po qd --> patient continues to DECLINE medication prefers lifestyle modificati ons BP today 130/85will follow up in 4 weeks Obesity 202385460 E66.9 BMI 33.8 --> currently 32.2 -- lost 8 lbs in 4 weeks with diet changes Goal to get to 190 lbs to get to BMI 29.8 from 33.4 Will try again to make healthy changes and add personal counselor.Di scussed diet at length including healthier food options, increase vegetable and fiber intake, reduce salt intake, incorporat e yoga/stret agustin practices and exercise 30 min 5 x per week to improve cardiovasc ular health. Mixed hyperlipidemia [id number] 369529 E78.2 Discussed trying vegan meat options - impossible burgers - to try to reduce meat intake - pt agreeable to making changes. Discussed cholestero l diet - reduced meat intake, reduced butter, increased fiber, olive oil. Previous ASCVD risk score 9.7% Intermedia te : Current 10-Year ASCVD Risk Lifetime ASCVD Risk: 69% Optimal ASCVD Risk: 2.1% - total chol 271, LDL 140, TG 450+ - 10/26/2023 -- cholestero l 229 (H), TG 551, HDL 36, VLDL 110, LDL 136- continue atorvastat in 40 mg po qd Prediabetes 125395749 R7 3.03 a1c - 5.7obesity -- losing weight with diet modificati ons discussed can be reversed with weight loss and encouraged continue plan Mixed anxi ety and depressive disorder 536504252 F41.8 PHQ9 - 11, GAD7 - 11currentl y in AA for 30 years, 7 yrs soberdaugh rosalie currently has new bf and is moving around the country - this gives him anxiety and stresses him out - has a sponsor- not interested in medication at this time- has support with AA - does not want a therapist Screening for malignant neoplasm of colon [id number] Z12.11 screening for colon cancer screeening hx of crohn's disease [id number] MD Cornelia Holland 14 IM 4 [facility] [address] [place] [address] 01/03/2024 09:42:18 01/08/2024 08:55:21 Essential hypertension [id number] I10 -- hx of multiple hospitaliz ations for HTN urgency-- nov 2020 - amlodipine 5 mg, diltiazem er 120 mg, lisinopril 30 mg x 1 mo duration with improvemen t of symptoms-- was started last appt lisinopril 20 mg po qd and amlodipine 5 mg po qd -- discontinu ed per patient- denies any alarm symptoms-- > patient continues to DECLINE medication prefers lifestyle modificati ons BP today 130/82will follow up after January 31 2024 (colonosco py) Mixed hyperlipidemia 267 433045 E78.2 Discussed trying vegan meat options - impossible burgers - to try to reduce meat intake - pt agreeable to making changes. Discussed cholestero l diet - reduced meat intake, reduced butter, increased fiber, olive oil. Previous ASCVD risk score 9.7% Intermedia te : Current 10-Year ASCVD Risk Lifetime ASCVD Risk: 69% Optimal ASCVD Risk: 2.1% - total chol 271, LDL 140, TG 450+ - 10/26/2023 -- cholestero l 229 (H), TG 551, HDL 36, VLDL 110, LDL 136- patient discontinu ed atorvastat in 40 mg po qd due to GI distress -- discussed with patient his diarrhea is likely due to crohn's however patient did not want to take any medication s- declined change from atorvastat in to another medication - continue lifestyle mods Obesity [id number] E66.9 BMI 33.8 --> currently 31.1Goal to get to 190 lbs to get to BMI 29.8 from 33.4 Will try again to make healthy changes and add personal counselor.Di scussed diet at length including healthier food options, increase vegetable and fiber intake, reduce salt intake, incorporat e yoga/stret agustin practices and exercise 30 min 5 x per week to improve cardiovasc ular health. [id number] MD Cornelia Vigil 14 IM 4 [facility] [place] [address] 06/04/2024 15:57:01 06/11/2024 14:58:46 Family history of dementia 339891092 Z81.8 Obesity 326375354 E66.9 Screening for malignant neoplasm of prostate 281563403 Z12.5 Screening for malignant neoplasm of colon 493728596 Z12.11 We will discuss this at his next visit. [id number] MD Cornelia Vigil 14 IM 4 [facility] [place] [address] 10/03/2024 15:51:00 10/08/2024 11:39:33 Screening for malignant neoplasm of colon 221920095 Z12.11 We will discuss this at his next visit. Allergic r eaction to drug [id number] T50.905A Crohn's disease 45983920 K50.90 Dyslipidemia 462053983 E 78.5 Vitamin D deficiency 347 68233 E55.9 Prediabetes 259323552 R7 3.03 Screening for malignant neoplasm of prostate 797670207 Z12.5 Health Concerns Section Related Observation LastModified by Organization Detai ls LastModified Time None Recorded Concern Status LastModified by Organization Details LastModified Time None Recorded Advance Directives Directive N: Payers Insurance Date Sequence Insurance Name Policy Number Policy Kenyon Covered Member ID Kenyon Member ID Guarantor Name 06/03/2019 SLIDING FEE SCHEDULE - DISCOUNT Red Sullivan 06/03/2019 1 *SELF PAY* Karine Sullivan 10/26/2023 2 [facility] (MEDICAID REPLACEMENT - HMO) [id number] Red Sullivan [id number] Red Sullivan 08/01/2019 SLIDING FEE SCHEDULE - DISCOUNT Red Sullivan 10/26/2023 1 [facility] - DOS PRIOR TO 2021 (MEDICAID REPLACEMENT - HMO) Red Sullivan [id number] Red Sullivan 10/26/[address] [facility] (MEDICAID HMO) Red Sullivan [id number] Red Sullivan 10/26/2023 1 [employer] [facility] (MEDICAID HMO) Red Sullivan [id number] Red Sullivan 11/12/2024 1 [facility] (O) [id number] Red Sullivan [id number] Red Sullivan 05/11/2025 PAYMENT PLAN Red Sullivan 06/03/2019 1 *SELF PAY* Dc yaya Sullivan 10/26/2023 1 [facility] (PPO) [id number] Red Sullivan [id number] Red Sullivan
--- OUTSIDE RECORDS SUMMARY | 2025-05-12 14:35 | XMS_ITS | Clinical Summary ---
Author Organization [facility] Address [address] [place] [address] Care Team Providers Care Skidway Worker Name Role Phone RebeccaDorian rush Lashae WINDOWS VMWARE ENGINEER-HANDWRITING EXPERT Primary Care Provider [phone] Source Comments [facility]non-owned Affiliates and Associated Physician Practices is amultiple site organization consisting of ambulatory clinics and hospital sitesin [place], [place], [place] and [place]. This disclosure is being madepursuant to the Care Everywhere program and may not contain all information available regarding this patient. Last updated 18.[facility] Allergies No known active allergies Medications * Be aware that medications may not be up to date on this document. Alwaysverify current medications with the patient. acetaminophen (TYLENOL) 325 MG tablet Take 325 mg by mouth every 4 hours as needed. Maximum allowable Acetaminophen amount = 4 Grams (4000 mg) / 24 hours. Active HYDROcodone-ac etaminophen (NORCO) 5-325 MG tabletIndicati ons:Moderate to Moderately Severe Pain Take 1 tablet by mouth every 4 hours as needed for Pain Reasons: Moderate to Moderately Severe Pain 40 tablet 9 Active Additional Information Patient not taking.Reported on 09/10/2019 ketorolac (TORADOL) 10 MG tablet Take 1 tablet by mouth every 4 hours as needed for Pain 20 tablet 9 Active Additional Information Patient not taking.Reported on 09/10/2019 meloxicam (MOBIC) 15 MG tablet Take 1 tablet by mouth once daily Patient to begin this Rx after he has completed the Toradol/ketorolac Rx first. 30 tablet 9 Active traMADol (ULTRAM) 50 MG tablet Take 1 tablet by mouth every 6 hours as needed for Pain 40 tablet 9 Active ondansetron (ZOFRAN) 4 MG tablet Take 1 tablet by mouth every 6 hours as needed for Nausea/Vomiting (postop nausea) 20 tablet 9 Active Active Problems Problem Noted Date Diagnosed Date Pain in the abdomen 10/14/2009 Family History Medical History Relation Name Comments CAD (Coronary Artery Disease) Father Hypercholesterolemia Father Hypertension Father Relation Name Status Comments Father Social History Tobacco Use Types Packs/Day Years Used Date Smoking Tobacco: Never Smokeless Tobacco: Never Alcohol Use Standard Drinks/Week Comments Yes 0 (1 standard drink = 0.6 oz pur e alcohol) Occasional Sex and Gender Information Value Date Recorded Sex Assigned at Not on file Legal Sex Male 4:15 AM DWARF TREE GROWER Gender Identity Not on file Sexual Orientation Not on file Last Filed Vital Signs Vital Sign Reading Time Taken Comments Blood Pressure 154/101 08/22/2019 3:30 PM DWARF TREE GROWER Pulse 106 08/22/2019 3:30 PM DWARF TREE GROWER Temperature 36.4 C (97.5 F) 08/22/2019 3:30 PM DWARF TREE GROWER Respiratory Rate 13 08/22/2019 3:30 PM DWARF TREE GROWER Oxygen Saturation 97% 08/22/2019 3:15 PM DWARF TREE GROWER Inhaled Oxygen Concentration - - Weight 95.3 kg (210 lb) 09/10/2019 10:03 AM DWARF TREE GROWER Height 170.2 cm (5' 7) 09/10/2019 10:03 AM DWARF TREE GROWER Body Mass Index 32.89 09/10/2019 10:03 AM DWARF TREE GROWER Plan of Treatment Health Maintenance Due Date Last Done Comments COLOGUARD (AGES 45-75) - COL ON CA SCREENING 1971 COLON MONITORING 1971 COLONOSCOPY - COLON CA SCREENING 1971 CT COLONOGRAPHY - COLON CA SCREENING 1971 Colorectal Cancer Screening 1971 FIT - COLON CA SCREENING 1971 FLEX SIG - COLON CA SCREENING 1971 LIPID TESTING 1971 HIV SCREENING 1986 HEPATITIS C SCREENING 10/13/1989 DTAP/TDAP/TD VACCINES (1 - Tdap) 1990 HEPATITIS B VACCINE (1 of 3 - 19+ 3-dose series) 1990 SCREENING FOR DIABETES 07/12/2019 10/14/2009 PNEUMOCOCCAL VACCINE 50+ (1 of 1 - PCV) 2021 ZOSTER VACCINE (1 of 2) 2021 COVID-19 VACCINE (1 - 2023-2 5 season) 2024 DEPRESSION SCREENING 10/16/2024 INFLUENZA VACCINE (#1) 2025 HIB VACCINE Aged Out No longer eligi ble based on patient's age to complete this topic HPV VACCINE Aged Out No longer eligi ble based on patient's age to complete this topic MENINGOCOCCAL (Group B) VACC INE SHARED DECISION-MAKING Aged Out No longer eligibl e based on patient's age to complete this topic MENINGOCOCCAL GROUPS A/C/Y/W VACCINE Aged Out No longer eligible b ased on patient's age to complete this topic Procedures Procedure Name Priority Date/Time Associated Diagnosis Comments COMPREHENSIVE METABOLIC PANEL STAT 10/14/2009 6:20 AM DWARF TREE GROWER Unspecified Backache from Last 3 Months or Most Recently Relevant to Health Maintenance Results * (ABNORMAL) COMPREHENSIVE METABOLIC PANEL (10/14/2009 6:20 AM DWARF TREE GROWER) Sodium 140 137 - 145 mmol/L [facility] Potassium 3.4(L) 3.6 - 5.0 mmol/L [facility] Chloride 106 98 - 107 mmol/L [facility] BUN 13 9 - 20 mg/dl [facility] Creatinine 0.88 0.66 - 1.25 mg/dl [facility] Glucose 96 75 - 110 mg/dl [facility] Calcium 8.6 8.4 - 10.2 mg/dl [facility] Alkaline Phosphatase 37(L) 38 - 126 U/L [facility] AST 24 14 - 50 U/L [facility] Bilirubin Total 0.4 0.2 - 1.3 mg/dl [facility] Protein Total 6.2(L) 6.3 - 8.2 gm/dl [facility] Albumin 3.6(L) 3.9 - 5.0 gm/dl [facility] CO2 26 22 - 30 mmol/L [facility] ALT 42 21 - 72 U/L [facility] eGFR by MDRD 97 >60 mL/min/1.7 3m2 [facility] Comment eGFR [facility] Comment: The eGFR does not apply to patients who are younger than 18 or older than 70. BLOOD SPECIMEN / Unknown 10/14/2009 6:20 AM DWARF TREE GROWER 10/14/2009 6:24 AM DWARF TREE GROWER us Danis Galarza MD LAB - CHEMISTRY ORDERABLES Fi nal Result [facility] [address] [place] [address] from Last 3 Months or Most Recently Relevant to Health Maintenance Insurance [facility] Address: [address] [address] [facility] Care Teams Skidway Worker Relationship Specialty Start Date End Date Dorian Wilson, BECKY-HANDWRITING EXPERT PCP - General 06/07/19
--- OUTSIDE RECORDS SUMMARY | 2025-05-12 14:35 | XMS_ITS | Clinical Summary ---
Author Organization [facility] Address [address] [place] [address] Care Team Providers Care Teaching Pastor Name Role Phone Cherry Valverde MD Primary Care Provider [phone] Allergies No known active allergies Medications emtricitabine-teno fovir disoproxil fumerate (TRUVADA) 200-300 mg per tablet Take 1 tablet by mouth daily for 28 days 28 tablet 02/22/20 23 Active raltegravir (ISENTRESS) 400 mg tablet Take 1 tablet (400 mg total) by mouth 2 (two) times a day for 28 days 56 tablet 02/22/20 23 Active ondansetron ODT (ZOFRAN-ODT) 4 mg disintegrating tablet Dissolve 1 tablet for nausea or vomiting oral every 8 hours as needed. 15 tablet 02/22/20 23 Active Additional Information Patient not taking.Reported on 01/04/2024 Active Problems Problem Noted Date Diagnosed Date JOSE MANUEL (obstructive sleep apnea) 03/21/2024 Immunizations Immunization Administration Dates Next Due Hep B Immune Globulin 02/21/2023,02/21/2023(),() Hep B Vaccine 02/21/2023 Tdap 02/21/2023 Medical History Medical History Date Comments Hypertension Social History Tobacco Use Types Packs/Day Years Used Date Smoking Tobacco: Never Alcohol Use Standard Drinks/Week Comments Not Currently 0 (1 standard drink = 0.6 oz pur e alcohol) Personal Safety Answer Date Recorded Getting School Help Needed Not on file 03/04 Sex and Gender Information Value Date Recorded Sex Assigned at Not on file 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 Gender Identity Not on file Sexual Orientation Not on file Obstetrics History Last Filed Vital Signs Vital Sign Reading Time Taken Comments Blood Pressure 115/72 01/04/2024 10:01 AM CDT Pulse 72 01/04/2024 10:01 AM CDT Temperature 36.6 C (97.8 F) 02/21/2023 5:49 PM CDT Respiratory Rate 18 02/21/2023 5:49 PM CDT Oxygen Saturation 95% 01/04/2024 10:01 AM CDT Inhaled Oxygen Concentration - - Weight 92.1 kg (203 lb) 01/04/2024 10:01 AM CDT Height 170.2 cm (5' 7) 01/04/2024 10:01 AM CDT Body Mass Index 31.79 01/04/2024 10:01 AM CDT Plan of Treatment Health Maintenance Due Date Last Done Comments Colon Cancer Screening-Colonoscopy 1971 Depression Screening 1971 Prostate Cancer Screening-PSA 1971 Regular Well Visit/Exam 18-64 1989 Zoster Vaccine (1 of 2) 2021 Influenza Vaccine (#1) 2025 DTaP/Tdap/Td Vaccine (2 - Td or Tdap) 02/21/2033 02/21/2023 Hepatitis B Screening Completed 02/21/2023 , 02/21/2023 Hepatitis C Screening Completed 02/21/2023 Pneumococcal vaccine <65 Aged Out No longer eligible based on patient's age to complete this topic Procedures Procedure Name Priority Date/Time Associated Diagnosis Comments HEPATITIS PANEL, ACUTE STAT 02/21/2023 8:09 PM CDT from Last 3 Months or Most Recently Relevant to Health Maintenance Results * Hepatitis panel, acute (02/21/2023 8:09 PM CDT) Hep A IgM Nonreactive Nonreactive [facility] Comment: Interpretive Data: If Hep A IgM Ab is reported as Equivocal, a new sample should be drawn in two weeks for testing. Current interpretive data was last revised on 20. Hep B core IgM Nonreactive Nonreactive [facility] Comment: Interpretive Data If HepB Core IgM Ab is reported as Equivocal, a new sample should be drawn in two weeks for testing. Current interpretive data was last revised on 20. Hep C Ab Nonreactive Nonreactive [facility] Comment: Interpretive Data Nonreactive: Antibodies to HCV not detected. Does NOT exclude the possibility of recent exposure to HCV. Equivocal: Equivocal for HCV antibodies. Supplemental molecular testing will be automatically performed to determine infection status in accordance with current CDC screening recommendations. Reactive: Positive for HCV antibodies. This may represent current or past HCV infection. Supplemental molecular testing will be automatically performed to determine current infection status in accordance with current CDC screening recommendations. Interpretive data was last revised on 2020. HepBsAg Nonreactive Nonreactive [facility] Blood 02/21/2023 8:09 PM CDT 02/21/2023 8:24 PM CDT [facility]CRO[facility] - GENERAL ORDERABLES Final Result [facility] [id number] [place] [address] from Last 3 Months or Most Recently Relevant to Health Maintenance Insurance [facility] Care Teams Teaching Pastor Relationship Specialty Start Date End Date Cherry Valverde MD [address] [place] [address] PCP - General Family Medicine 05/05/22
--- OUTSIDE RECORDS SUMMARY | 2025-05-12 14:35 | XMS_ITS | Referral Summary ---
Author Organization [facility] Address [address] [place] [address] Care Team Providers Care Microsoft Net Developer Name Role Phone Cherry Valverde MD Primary Care Provider [phone] Allergies No known active allergies Medications emtricitabine-teno [...] 02/21/2023,02/21/2023(),() Hep B Vaccine 02/21/2023 Tdap 02/21/2023 Social History Tobacco Use Types Packs/Day Years Used Date Smoking Tobacco: Never Alcohol Use Standard Drinks/Week Comments Not Currently 0 (1 standard drink = 0.6 oz pur e alcohol) Personal Safety Answer Date Recorded Getting School Help Needed Not on file 03/04 Sex and Gender Information Value Date Recorded Sex Assigned at Not on file 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 Current interpretive data was last revised on 20. Hep B core IgM Nonreactive Nonreactive [facility] Comment: Interpretive Data If HepB Core IgM Ab is reported as Equivocal, a new sample should be drawn in two weeks for testing. Current interpretive data was last revised on 20. Hep C Ab Nonreactive Nonreactive [facility] Comment: Interpretive Data Nonreactive: Antibodies to HCV [...] last revised on 2020. HepBsAg Nonreactive Nonreactive [facility] Blood 02/21/2023 8:09 PM CDT 02/21/2023 8:24 PM CDT [facility] - GENERAL ORDERABLES Final Result Performing Organization Address City/State/ZIP Co ma Phone Number [facility] [id number] [place] [address] from Last 3 Months or Most Recently Relevant to Health Maintenance Insurance [facility] Care Teams Microsoft Net Developer Relationship Specialty Start Date End Date Cherry Valverde MD [address] [place] [address] [place] [address] PCP - General Family Medicine 05/05/22
[2025-05-12 14:52] VITALS: BP 218/130; PULSE 83; RESP 20; TEMP 36.5; O2SAT 96
[2025-05-12 15:32] LABS: Hematocrit 46.7 % (42.0-52.0); Hemoglobin 15.6 g/dL (14.0-18.0); Immature Granulocyte Percent A 0.5 % (0-0.5); Lymphocytes Absolute Auto 2.68 K/mm3 (0.9-3.2); Mean Corpuscular HGB Conc 33.4 g/dl (32-36); Mean Corpuscular Hemoglobin 28.1 pg (26-34); Mean Corpuscular Volume 84.0 fl (80-100); Nucleated Red Blood Cells Absolute Auto 0.000 K/mm3 (0.0-0.012); Nucleated Red Blood Cells Perc 0.0 % (0.0-0.2); Platelet Count Result 301 k/mm3 (150-375); Red Blood Count 5.56 M/mm3 (4.6-6.20); White Blood Count 11.4 K/mm3 (4.5-10.0)
[2025-05-12 15:45] LABS: Alanine Aminotransferase 49 U/L (6-50); Albumin Level 4.8 g/dL (3.5-5.1); Alkaline Phosphatase 43 U/L (38-126); Anion Gap 11 mmol/L (4-12); Aspartate Amino Transferase 50 U/L (17-59); Bilirubin,Total 0.5 mg/dL (0.2-1.3); Blood Urea Nitrogen 16 mg/dL (9-20); Calcium 9.7 mg/dL (8.4-10.2); Carbon Dioxide 18 mmol/L (22-30); Chloride 108 mmol/L (98-107); Estimated CRCL calculation 80 ml/min; Estimated Glomerular Filt Rate > 60; Glucose 130 mg/dL (65-110); Lipase 81 U/L (23-300); Potassium 4.0 mmol/L (3.4-5.0); Sodium 137 mmol/L (137-145); Total Protein 9.0 g/dL (6.3-8.2)
[2025-05-12] MEDS: MORPHINE SULFATE (*CRX) 4 MG/ML INJ IV PUSH (16:04)
[2025-05-12] MEDS: ONDANSETRON INJ 4 MG/2 ML VIAL IV PUSH (16:04)
[2025-05-12] MEDS: SODIUM CHLORIDE 0.9% IV 1,000 ML 150 ML IV CONT (16:05)
--- OUTSIDE RECORDS SUMMARY | 2025-05-12 16:34 | XMS_ITS | Clinical Summary ---
Author Organization [facility] Address [address] [place] [address] Care Team Providers Care Knocker Out Name Role Phone RebeccaDorian rush Lashae MEXICAN FOOD MAKER HAND-PLANISHING HAMMER OPERATOR Primary Care Provider [phone] Source Comments [facility],non-owned Affiliates and Associated Physician Practices is amultiple site organization consisting of ambulatory clinics and hospital sitesin [place], [place], [place] and [place]. This disclosure is being madepursuant to the Care Everywhere program and may not contain all information available regarding this patient. Last updated 18.[facility] Allergies No known active allergies Medications * [...] on file Legal Sex Male 4:15 AM PERSONAL LINES ACCOUNT MANAGER Gender Identity Not on file Sexual Orientation Not on file Last Filed Vital Signs Vital Sign Reading Time Taken Comments Blood Pressure 154/101 08/22/2019 3:30 PM PERSONAL LINES ACCOUNT MANAGER Pulse 106 08/22/2019 3:30 PM PERSONAL LINES ACCOUNT MANAGER Temperature 36.4 C (97.5 F) 08/22/2019 3:30 PM PERSONAL LINES ACCOUNT MANAGER Respiratory Rate 13 08/22/2019 3:30 PM PERSONAL LINES ACCOUNT MANAGER Oxygen Saturation 97% 08/22/2019 3:15 PM PERSONAL LINES ACCOUNT MANAGER Inhaled Oxygen Concentration - - Weight 95.3 kg (210 lb) 09/10/2019 10:03 AM PERSONAL LINES ACCOUNT MANAGER Height 170.2 cm (5' 7) 09/10/2019 10:03 AM PERSONAL LINES ACCOUNT MANAGER Body Mass Index 32.89 09/10/2019 10:03 AM PERSONAL LINES ACCOUNT MANAGER Plan of Treatment Health Maintenance Due Date [...] COMPREHENSIVE METABOLIC PANEL STAT 10/14/2009 6:20 AM PERSONAL LINES ACCOUNT MANAGER Unspecified Backache from Last 3 Months or Most Recently Relevant to Health Maintenance Results * (ABNORMAL) COMPREHENSIVE METABOLIC PANEL (10/14/2009 6:20 AM PERSONAL LINES ACCOUNT MANAGER) Sodium 140 137 - 145 mmol/L [facility] Potassium 3.4(L) 3.6 - 5.0 mmol/L [facility] Chloride 106 98 - 107 mmol/L [facility] BUN 13 9 - 20 mg/dl [facility] Creatinine 0.88 0.66 - 1.25 mg/dl [facility] Glucose 96 75 - 110 mg/dl [facility] Calcium 8.6 8.4 - 10.2 mg/dl [facility] Alkaline Phosphatase 37(L) 38 - 126 U/L [facility] AST 24 14 - 50 U/L [facility] Bilirubin Total 0.4 0.2 - 1.3 mg/dl [facility] Protein Total 6.2(L) 6.3 - 8.2 gm/dl [facility] Albumin 3.6(L) 3.9 - 5.0 gm/dl [facility] CO2 26 22 - 30 mmol/L [facility] ALT 42 21 - 72 U/L [facility] eGFR by MDRD 97 >60 mL/min/1.7 3m2 [facility] Comment eGFR [facility] Comment: The eGFR does not apply to patients who are younger than 18 or older than 70. BLOOD SPECIMEN / Unknown 10/14/2009 6:20 AM PERSONAL LINES ACCOUNT MANAGER 10/14/2009 6:24 AM PERSONAL LINES ACCOUNT MANAGER us Danis Galarza MD LAB - CHEMISTRY ORDERABLES Fi nal Result [facility] [address] [place] [address] from Last 3 Months or Most Recently Relevant to Health Maintenance Insurance [facility] Care Teams Knocker Out Relationship Specialty Start Date End Date Dorian Wilson, BECKY-PLANISHING HAMMER OPERATOR PCP - General 06/07/19
--- OUTSIDE RECORDS SUMMARY | 2025-05-12 16:34 | XMS_ITS | Clinical Summary ---
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
--- OUTSIDE RECORDS SUMMARY | 2025-05-12 16:34 | XMS_ITS | Referral Summary ---
Author Organization [facility] Address [address] [place] [id number] Care Team Providers Care Mud Cleaner Operator Name Role Phone Cherry Valverde MD Primary Care Provider [phone] Allergies No known active allergies Medications emtricitabine-teno [...] on file Legal Sex Male 11:39 PM MANAGEMENT LECTURER Gender Identity Not on file Sexual Orientation [...] PM CDT) Hep A IgM Nonreactive Nonreactive [facility] Comment: Interpretive Data: If Hep A IgM Ab is reported as Equivocal, a new sample should be drawn in two weeks for testing. Current interpretive data was last revised on 20. Hep B core IgM Nonreactive Nonreactive [facility] Comment: Interpretive Data If HepB Core IgM Ab is reported as Equivocal, a new sample should be drawn in two weeks for testing. Current interpretive data was last revised on 20. Hep C Ab Nonreactive Nonreactive [facility] Comment: Interpretive Data Nonreactive: Antibodies to HCV [...] last revised on 2020. HepBsAg Nonreactive Nonreactive [facility] Blood 02/21/2023 8:09 PM CDT 02/21/2023 8:24 PM CDT [facility] MICROBIOLOGY - GENERAL ORDERABLES Final Result Performing Organization Address City/State/ZIP Co fl Phone Number [facility] [address] Department [place] [address] from Last 3 Months or Most Recently Relevant to Health Maintenance Insurance [facility] Care Teams Mud Cleaner Operator Relationship Specialty Start Date End Date Cherry Valverde MD [address] [place] [address] [place] [address] PCP - General Family Medicine 05/05/22
[2025-05-12 17:02] LABS: Add Urine Microscopic? YES; Appearance Urine Clear (Clear); Glucose Urine UA Negative (Negative); Leukocyte Esterase Ur Negative LEU/UL (Negative); Nitrate Urine Negative (Negative); Non Pathogenic Casts 0-2; Specific Grav Ur 1.023 (1.001-1.035)
[2025-05-12] MEDS: KETOROLAC 30 MG/ML VIAL (*BKC) IV PUSH (17:07)
[2025-05-12] MEDS: METOCLOPRAMIDE HCL INJ 10 MG/2 ML VIAL 5 MG IV PUSH (17:13)
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
[2025-05-12 18:36] VITALS: BP 190/119; PULSE 100; RESP 20; O2SAT 98
--- NOTE | 2025-05-12 18:42 | PC.NURSE ---
Norvasc 10mg po given to patient per MD order.
== END 2025-05-12 19:00 | disposition home or self-care (01) ==
PROVIDERS: Registered Nurse; Emergency Provider Family Medicine
DX: N13.2 Hydronephrosis with renal and ureteral calculous obstruction (principal); I10 Essential (primary) hypertension; K50.90 Crohn's disease, unspecified, without complications
CPT/HCPCS: 36415; 74176; 80053; 81001; 83690; 85025; 96361; 96374; 96375; 99284; A9270; J1885; J2270; J2405; J2765; J7030